=== PATIENT | female | born 1945 | race Caucasian/White ===

== ENCOUNTER 2017-02-16 08:49 | Day surgery (SDC) | payer MEDICARE, OTHER ==
[~2017-02-16 08:49] MED LIST: Lactated Ringers 1,000 ML IV SCH; Sodium Chloride 0.9% 10 ML Syringe FLUSH PRN
[2017-02-16] MEDS ORDERED: fentaNYL 100 MCG/2 ML SDV ONE (10:37)
[2017-02-16] MEDS ORDERED: Propofol 200 MG/20 ML SDV ONE ×2 (10:38)
[2017-02-16] MEDS ORDERED: Midazolam 1 MG/ML 2 ML SDV ONE ×2 (10:38)
--- NOTE | 2017-02-16 10:50 | PCM.HPR ---
H & P Addendum review - H & P Addendum Review Date of Original H & P: 02/10/17 Date Reviewed: 02/16/17 Time Reviewed: 10:35 Patient was Examined: No Changes
--- NOTE | 2017-02-16 11:12 | PCM.OPNOTE ---
- General Post-Op/Procedure Note Date of Surgery/Procedure: 02/16/17 Operative Procedure(s): Colonoscopy Findings: normal Pre Op Diagnosis: Hx Colon Polyps Post-Op Diagnosis: Same Anesthesia Technique: MAC Primary Surgeon: Mario Uriostegui Anesthesia Provider: Courtney Palomo Complications: None Condition: Good Free Text/Narrative:: Intake & Output 02/15/17 02/16/17 02/16/17 22:59 06:59 14:59 Intake Total 600 Balance 600
--- NOTE | 2017-02-16 13:51 | OR ---
Date of Procedure: 02/16/2017 PREOPERATIVE DIAGNOSIS: History of colon polyps. POSTOPERATIVE DIAGNOSIS: Normal colonoscopy. PROCEDURE: Colonoscopy. ANESTHESIA: IV sedation. PROCEDURE IN DETAIL: The patient was brought to the procedure room where she was placed on her left side and IV sedation administered. Digital rectal exam was performed which was normal. Colonoscope was inserted and advanced to the level of the cecum without difficulty. The ileocecal valve was identified. I was unable to identify an appendiceal orifice. The prep was good and surfaces were well visualized. Upon withdrawing the scope, the ascending, transverse, and descending colon were normal in appearance. Sigmoid colon and rectum were normal. Retroflexion was normal. Air was removed and the scope withdrawn. The patient tolerated the procedure well and returned to recovery in stable condition. Recommend routine colon screening again in 5 years. JUAN DAMIAN MD /[id number]
[2017-02-16 16:33] VITALS: BP 118/52
== END 2017-02-16 12:37 | disposition home or self-care (01) ==
LOC: LL.SDS 08:49
PROVIDERS: ATTEND Surgery
DX: Z12.11 Encounter for screening for malignant neoplasm of colon (principal); I10 Essential (primary) hypertension; Z86.010 Personal history of colon polyps; Z88.8 Allergy status to other drugs, medicaments and biological substances; Z80.0 Family history of malignant neoplasm of digestive organs; Z79.82 Long term (current) use of aspirin; Z79.899 Other long term (current) drug therapy; Z98.890 Other specified postprocedural states; Z87.891 Personal history of nicotine dependence
CPT/HCPCS: G0105; J2250; J2704; J7120; 00810-QZ

== ENCOUNTER 2021-01-25 20:01 | Observation (INO) | payer MEDICARE, OTHER ==
[2021-01-25] MEDS ORDERED: Diltiazem 25 MG/5 ML SDV IVPUSH ONE ×3 (20:09→20:44)
[2021-01-25] MEDS: Sodium Chloride 0.9% 10 ML Syringe FLUSH PRN ×2 (20:16→20:56)
[2021-01-25 20:38] LABS: PTT,PARTIAL THROMBOPLSTIN TIME 25.1 SEC (24.5-32.8)
--- NOTE | 2021-01-25 20:47 | EDM.PDOC ---
ED HPI GENERAL MEDICAL PROBLEM - General Chief Complaint: Chest Pain Stated Complaint: chest pain Time Seen by Provider: 01/25/21 20:01 Source of Information: Reports: Patient History Limitations: Reports: No Limitations - History of Present Illness INITIAL COMMENTS - FREE TEXT/NARRATIVE: Pt. presents to ER with complaints of acute onset of palpitations and chest pain. She states the symptoms started at around 7:30 this evening. She states that she is short of breath since the symptoms started. Pt. states that she has a history of irregular heart rate in the past, necessit ating treatment with medications in the emergency room. She is not sure what rhythm she was in. She states that she was not started on any oral medications at home, and denies ever being on a blood thinner. Pt. underwent an echo in September 2020. Showed EF of 65%-70% with mild concentric hypertrophy. RV mildly enlarged, indeterminate diastolic function, trace mitral regurgitation (no stenosis), unable to visualize aortic valve, moderate tricuspid regurgitation. Pt. is currently only on amlodipine 2.5mg once daily for hypertension. Pt. states that she was active throughout the day today, working in her garden with family, but denies any exertion. Onset: Today Onset Date: 01/25/21 Location: Reports: Chest, Generalized - Related Data Allergies Allergy/AdvReac Type Severity Reaction Status Date / Time fentanyl Allergy dizziness,n Verified 01/25/21 20:29 ausea hydrocodone [From [place]] Allergy nausea,vomting, Verified 01/25/21 20:29 dizziness nitrofurantoin Allergy Headache Verified 01/25/21 20:29 [From Macrobid] oxycodone Allergy Nausea Verified 01/25/21 20:29 Home Meds: Home Meds Cholecalciferol (Vitamin D3) [Vitamin D3] 1,000 unit PO DAILY 03/25/15 [History] Multivitamin [Multi-Vitamin Daily] 1 each PO DAILY 03/25/15 [History] [place]-3S/DHA/Epa/Fish Oil [Fish Oil Dr 1,000 mg Softgel] 1 each PO DAILY 03/25/15 [History] Aspirin [Children's Aspirin] 81 mg PO DAILY 02/15/17 [History] Calcium Carbonate/Vitamin D3 [Calcium 600 + Vit D 200] 1 each PO BID 02/15/17 [History] amLODIPine [Norvasc] 2.5 mg PO DAILY 02/15/17 [History] Pravastatin [Pravachol] 20 mg PO MO@0800 01/25/21 [History] Past Medical History HEENT History: Reports: Cataract Cardiovascular History: Reports: Afib, Arrhythmia, CAD Other Cardiovascular History: vasomotor flushing Respiratory History: Reports: None Gastrointestinal History: Reports: Other (See Below) Other Gastrointestinal History: Has gall stones. No actual gallbladder attacks Genitourinary History: Reports: UTI, Recurrent DIABETES PHYSICIAN History: Reports: Dysfunctional Uterine Bleeding, Fibroids Musculoskeletal History: Reports: Arthritis Neurological History: Reports: None Psychiatric History: Reports: None Endocrine/Metabolic History: Reports: Vitamin D Deficiency Hematologic History: Reports: None Immunologic History: Reports: None Oncologic (Cancer) History: Reports: None Dermatologic History: Reports: None Other Dermatologic History: Pilonidal cyst - Infectious Disease History Infectious Disease History: Reports: Chicken Pox, Measles, Mumps, Rubella, Shingles - Past Surgical History HEENT Surgical History: Reports: Cataract Surgery Other GI Surgeries/Procedures: Hx. of noncancerous abdominal tumor Female Surgical History: Reports: Hysterectomy, Salpingo-Oophorectomy - Past Imaging History Past Imaging History: Reports: DEXA Scan, Mammogram Social & Family History - Family History HEENT: Reports: Hearing Impairment, Macular Degeneration Cardiac: Reports: Bypass, CAD, Cardiomyopathy, Heart Failure, Hypertension, DC Respiratory: Reports: None GI: Reports: None : Reports: None OBGYN: Reports: Other (See Below) Other OBGYN Family History: Mother with hysterectomy for unknown reason Musculoskeletal: Reports: Osteoarthritis Neurological: Reports: CVA, TIA Psychiatric: Reports: None Endocrine/Metabolic: Reports: None Hematologic: Reports: None Immunologic: Reports: None Dermatologic: Reports: None Oncologic: Reports: Colon, Lung, Skin - Caffeine Use Caffeine Use: Reports: None Other Caffeine Use: Chocolate - Living Situation & Occupation Living situation: Reports: , with Family Occupation: Retired ED ROS GENERAL - Review of Systems Review Of Systems: See Below Constitutional: Reports: No Symptoms. Denies: Fever, Chills, Malaise, Weakness, Fatigue HEENT: Reports: No Symptoms Respiratory: Reports: No Symptoms Cardiovascular: Reports: Chest Pain, Palpitations Endocrine: Reports: No Symptoms GI/Abdominal: Reports: No Symptoms : Reports: No Symptoms Musculoskeletal: Reports: No Symptoms Skin: Reports: No Symptoms Neurological: Reports: No Symptoms Psychiatric: Reports: No Symptoms Hematologic/Lymphatic: Reports: No Symptoms Immunologic: Reports: No Symptoms ED EXAM, GENERAL - Physical Exam Exam: See Below Exam Limited By: No Limitations General Appearance: Alert, WD/WN, No Apparent Distress Head: Atraumatic, Normocephalic Neck: Normal Inspection, Supple, Non-Tender, Full Range of Motion Respiratory/Chest: No Respiratory Distress, Lungs Clear, Normal Breath Sounds, No Accessory Muscle Use, Chest Non-Tender Cardiovascular: No Edema, No JVD, Tachycardia, Irregularly Irregular GI/Abdominal: Normal Bowel Sounds, Soft, Non-Tender, No Organomegaly, No Distention, No Mass (Female) Exam: Deferred Rectal (Female) Exam: Deferred Back Exam: Normal Inspection, Full Range of Motion Extremities: Normal Inspection, Normal Range of Motion, Non-Tender, No Pedal Edema, Normal Capillary Refill Neurological: Alert, Oriented, CN II-XII Intact Psychiatric: Normal Affect, Normal Mood Skin Exam: Warm, Dry, Intact, Normal Color, No Rash Lymphatic: No Adenopathy #1 Interpretation Rhythm: A-Fib EKG Interpretation Comments: Initial EKG afib with RVR #2 Interpretation Rhythm: NSR Course - Orders/Labs/Meds Orders: Active Orders 24 hr Category Date Time Status Patient Status [ADT] Routine ADT 01/25/21 21:24 Active EKG Documentation Completion [RC] ASDIRECTED Care 01/25/21 20:10 Active Peripheral IV Care [RC] . DIRECTED Care 01/25/21 20:10 Active Echo Comp wo Cont [US] Stat Exams 01/25/21 21:16 Ordered Diltiazem 125 mg Med 01/25/21 21:15 Active Sodium Chloride 0.9% [Normal Saline] 100 ml IV TITRATE Sodium Chloride 0.9% [Saline Flush] Med 01/25/21 20:09 Active 10 ml FLUSH ASDIRECTED PRN Peripheral IV Insertion Adult [OM.PC] Routine Oth 01/25/21 20:10 Ordered Medication Orders Diltiazem HCl 125 mg/ Sodium (Chloride) 125 mls @ 5 mls/hr IV TITRATE CEZAR; Protocol Sodium Chloride (Sodium Chloride 0.9% 10 Ml Syringe) 10 ml FLUSH ASDIRECTED PRN PRN Reason: Keep Vein Open Last Admin: 01/25/21 20:56 Dose: 10 ml Documented by: Admin: 01/25/21 20:16 Dose: 10 ml Documented by: LEAH Labs: Laboratory Tests 01/25/21 01/25/21 01/25/21 Range/Units 20:20 20:20 20:20 WBC 7.5 (4.0-10.2) K/uL RBC 5.20 H (3.77-5.09) M/uL Hgb 16.0 H (11.7-15.5) g/dL Hct 46.8 H (34.0-46.0) % MCV 90.0 (84.0-98.0) fL MCH 30.8 (28.2-33.3) pg MCHC 34.2 (31.7-36.0) g/dL RDW 13.4 (11.2-14.1) % Plt Count 260 (150-350) K/uL Neut % (Auto) 68.6 (45.0-80.0) % Lymph % (Auto) 18.2 (10.0-50.0) % [place] % (Auto) 9.8 (2.0-14.0) % Eos % (Auto) 3.1 (0.0-5.0) % Baso % (Auto) 0.3 (0.0-2.0) % Neut # (Auto) 5.12 (1.40-7.00) K/uL Lymph # (Auto) 1.36 (0.50-3.50) K/uL [place] # (Auto) 0.73 (0.00-1.00) K/uL Eos # (Auto) 0.23 (0.00-0.50) K/uL Baso # (Auto) 0.02 (0.00-0.20) K/uL PT 10.1 (9.5-12.0) SEC INR 1.0 APTT 25.1 (24.5-32.8) SEC Sodium 145 (136-145) mmol/L Potassium 4.4 (3.5-5.1) mmol/L Chloride 108 H (98-107) mmol/L Carbon Dioxide 23.4 (21.0-32.0) mmol/L Anion Gap 18.0 H (7-15) meq/L BUN 19 H (7-18) mg/dL Creatinine 0.65 (0.51-1.17) mg/dL Est Cr Clr Drug Dosing TNP Estimated GFR (MDRD) > 60 mL/min Glucose 155 H (70-99) mg/dL Calcium 9.4 (8.5-10.1) mg/dL Phosphorus 4.2 (2.6-4.7) mg/dL Magnesium 2.1 (1.8-2.4) mg/dL Total Bilirubin 0.5 (0.2-1.0) mg/dL AST 35 (15-37) U/L ALT 42 (12-78) U/L Alkaline Phosphatase 108 (46-116) IU/L Troponin I High Sens 6 (<=51) ng/L C-Reactive Protein < 0.2 (<=0.9) mg/dL NT-Pro-B Natriuret Pep 73 (0-125) pg/mL Total Protein 7.4 (6.4-8.2) g/dL Albumin 3.9 (3.4-5.0) g/dL TSH, Ultra Sensitive 1.259 (0.358-3.740) mIU/mL Meds: Medications Generic Name Dose Route Start Last Admin Trade Name Freq PRN Reason Stop Dose Admin Diltiazem HCl 125 mg/ Sodium 125 mls @ 5 mls/hr 01/25/21 21:15 Chloride IV TITRATE CEZAR Protocol 5 MG/HR Sodium Chloride 10 ml 01/25/21 20:09 01/25/21 20:56 Sodium Chloride 0.9% 10 Ml Syringe FLUSH 10 ml ASDIRECTED PRN Administration Keep Vein Open Discontinued Medications Generic Name Dose Route Start Last Admin Trade Name Freq PRN Reason Stop Dose Admin Diltiazem HCl 25 mg 01/25/21 20:09 01/25/21 20:12 Diltiazem 25 Mg/5 Ml Sdv IVPUSH 01/25/21 20:10 25 mg ONETIME ONE Administration Diltiazem HCl 25 mg 01/25/21 20:42 01/25/21 21:41 Diltiazem 25 Mg/5 Ml Sdv IVPUSH 01/25/21 20:43 Not Given ONETIME ONE Diltiazem HCl 20 mg 01/25/21 20:44 01/25/21 20:49 Diltiazem 25 Mg/5 Ml Sdv IVPUSH 01/25/21 20:45 20 mg ONETIME ONE Administration Diltiazem HCl 60 mg 01/25/21 21:25 01/25/21 21:41 Diltiazem Ir 60 Mg Tab PO 01/25/21 21:26 60 mg ONETIME ONE Administration - Re-Assessments/Exams Free Text/Narrative Re-Assessment/Exam: IV access established. Pt. was in atrial fib at 150-180 on arrival to ER. Pt. was initially given diltiazem 25mg IV. Rate decreased somewhat, ranging from 120-160. Pt. was given 20mg diltiazem IV after approx. 15 min. Pt. did slow down and eventually converted to a sinus rhythm in the 80s. Pt. was started on diltiazem IR 60mg PO. Pt. reported that the palpitations and chest discomfort completely resolved. Departure - Departure Time of Disposition: 22:13 Disposition: Refer to Observation Clinical Impression: Atrial fibrillation with rapid ventricular response, Chest pain - Discharge Information - Problem List Review Problem List Initiated/Reviewed/Updated: Yes - My Orders Last 24 Hours: My Active Orders 01/25/21 20:09 Sodium Chloride 0.9% [Saline Flush] 10 ml FLUSH ASDIRECTED PRN 01/25/21 20:10 EKG Documentation Completion [RC] ASDIRECTED Peripheral IV Care [RC] . DIRECTED Peripheral IV Insertion Adult [OM.PC] Routine 01/25/21 21:15 Diltiazem 125 mg Sodium Chloride 0.9% [Normal Saline] 100 ml IV TITRATE 01/25/21 21:16 Echo Comp wo Cont [US] Stat 01/25/21 21:24 Patient Status [ADT] Routine - Assessment/Plan Admission H&P: Please use this note as an admission H&P Last 24 Hours: My Active Orders 01/25/21 20:09 Sodium Chloride 0.9% [Saline Flush] 10 ml FLUSH ASDIRECTED PRN 01/25/21 20:10 EKG Documentation Completion [RC] ASDIRECTED Peripheral IV Care [RC] . DIRECTED Peripheral IV Insertion Adult [OM.PC] Routine 01/25/21 21:15 Diltiazem 125 mg Sodium Chloride 0.9% [Normal Saline] 100 ml IV TITRATE 01/25/21 21:16 Echo Comp wo Cont [US] Stat 01/25/21 21:24 Patient Status [ADT] Routine Plan: Pt. admitted observation on telemetry. She is a code 1. Start diltiazem IR 60mg TID. Echocardiogram was ordered for tomorrow. Labs consisting of troponin, CBC, and CMP ordered for AM. Will repeat EKG as needed.
[2021-01-25 20:52] LABS: CHLORIDE,CL 108 mmol/L (98-107); SODIUM,NA 145 mmol/L (136-145)
[2021-01-25] MEDS ORDERED: Diltiazem 125 MG in Sodium Chloride 0.9% 100 ML IV SCH (21:15)
[2021-01-25] MEDS ORDERED: Diltiazem IR 60 MG Tab PO ONE (21:25)
[2021-01-26 07:57] LABS: CHLORIDE,CL 109 mmol/L (98-107); SODIUM,NA 145 mmol/L (136-145)
[2021-01-26] MEDS: Diltiazem IR 60 MG Tab PO SCH ×2 (07:58→12:42)
[2021-01-26 07:59] LABS: ANION GAP 15.8 meq/L (7-15)
[2021-01-26] MEDS ORDERED: Fish Oil/Omega-3 Fatty Acids 1 Gm Cap PO SCH (08:00)
[2021-01-26] MEDS ORDERED: Aspirin 81 MG Tab.Chew PO SCH (08:00)
[2021-01-26] MEDS ORDERED: amLODIPine 5 MG Tab PO SCH (08:00)
[2021-01-26] MEDS ORDERED: Multivitamin Tab PO SCH (08:00)
[2021-01-26] MEDS ORDERED: Cholecalciferol (Vitamin D3) 25 MCG Tab PO SCH (08:00)
[2021-01-26] MEDS ORDERED: Calcium Carbonate/Vitamin D3 1500 MG-400 Units Tab PO SCH (08:00)
[2021-01-26] MEDS: Sodium Chloride 0.9% 10 ML Syringe FLUSH PRN (08:04)
[2021-01-26 12:44] VITALS: BP 131/67; PULSE 67
--- NOTE | 2021-01-26 13:00 | PCM.DCSUM1 ---
Discharge Summary - Hospital Course Brief History: Patient admitted observation after episode of Afib with RVR Diagnosis: Stroke: No - Discharge Data Discharge Date: 01/26/21 Discharge Disposition: Home, Self-Care 01 Condition: Good - Referral to Home Health Primary Care Physician: SHAWN Bhatt - Discharge Diagnosis/Problem(s) (1) Atrial fibrillation with rapid ventricular response SNOMED Code(s): 227068579907957 ICD Code: I48.91 - UNSPECIFIED ATRIAL FIBRILLATION Status: Acute Priority: High Current Visit: Yes Problem Details: Patient presented to ER with palpitations and noted to have Afib with RVR. History of previous episodes. Not on any preventive medications. Converted after Cardizem. Will be started on low dose Cardizem at disharge. Close follow up with PCP advised. - Patient Summary/Data Hospital Course: Patient remained in sinus rhythm during observation stay. Vital signs/labs stable. Has no complaints, feels well today. Requests to go home. Received IV Cardizem in addition to PO dosing. Cardiac echo scheduled prior to discharge. To follow up with PCP for official echo results. To be started on Cardizem as preventative for additional episodes of RVR. Precautions reviewed with patient prior to discharge. Would like her to follow up with PCP on Monday or next Monday. Also cautioned her to observe BP trends/observe for any symptoms of hypotension from the added Cardizem. - Patient Instructions Diet: Regular Diet as Tolerated Activity: As Tolerated Driving: May Drive Today Showering/Bathing: May Shower Other/Special Instructions: Follow up with your primary provider regarding echo results and any adjustments that may be needed to medication. Follow up otherwise as needed for any problems/concerns. Recommend getting a BP machine to check your blood pressure at home. The new medicine you are getting also works for lowering blood pressure. You may need your previous blood pressure med discontinued or have other med changes and your blood pressure may get a little too low. Please follow up with your clinic later this week so they can see how your are doing. - Discharge Plan *PRESCRIPTION DRUG MONITORING PROGRAM REVIEWED*: Not Applicable *COPY OF PRESCRIPTION DRUG MONITORING REPORT IN PATIENT BRENT: Not Applicable Prescriptions/Med Rec: Diltiazem [Cardizem CD] 120 mg PO DAILY #30 cap.er Home Medications: Home Meds Cholecalciferol (Vitamin D3) [Vitamin D3] 1,000 unit PO DAILY 03/25/15 [History] Multivitamin [Multi-Vitamin Daily] 1 each PO DAILY 03/25/15 [History] [place]-3S/DHA/Epa/Fish Oil [Fish Oil Dr 1,000 mg Softgel] 1 each PO DAILY 03/25/15 [History] Aspirin [Children's Aspirin] 81 mg PO DAILY 02/15/17 [History] Calcium Carbonate/Vitamin D3 [Calcium 600 + Vit D 200] 1 each PO BID 02/15/17 [History] amLODIPine [Norvasc] 2.5 mg PO DAILY 02/15/17 [History] Pravastatin [Pravachol] 20 mg PO MO@0800 01/25/21 [History] Diltiazem [Cardizem CD] 120 mg PO DAILY #30 cap.er 01/26/21 [Rx] Forms: ED Department Discharge Referrals: Mirella Wong PA [Primary Care Provider] - - Discharge Summary/Plan Comment DC Time >30 min.: No Total # of Minutes for Discharge Time: 30 - General Info Date of Service: 01/26/21 Admission Dx/Problem (Free Text: Afib/RVR Subjective Update: Feels well/no complaints Numeric/FACES Score: 0 - Review of Systems General: Reports: No Symptoms HEENT: Reports: No Symptoms Pulmonary: Reports: No Symptoms Cardiovascular: Reports: No Symptoms Gastrointestinal: Reports: No Symptoms Genitourinary: Reports: No Symptoms Musculoskeletal: Reports: Other (no acute changes from baseline) Skin: Reports: No Symptoms Neurological: Reports: No Symptoms Psychiatric: Reports: No Symptoms - Patient Data Vitals - Most Recent: Last Vital Signs Temp 36.9 C 01/26/21 12:00 Pulse 67 01/26/21 12:00 Resp 15 01/26/21 12:00 BP 131/67 01/26/21 12:00 Pulse Ox 94 L 01/26/21 12:00 Weight - Most Recent: 68.266 kg Lab Results - Last 24 hrs: Laboratory Results - last 24 hr 01/25/21 01/25/21 01/25/21 Range/Units 20:20 20:20 20:20 WBC 7.5 (4.0-10.2) K/uL RBC 5.20 H (3.77-5.09) M/uL Hgb 16.0 H (11.7-15.5) g/dL Hct 46.8 H (34.0-46.0) % MCV 90.0 (84.0-98.0) fL MCH 30.8 (28.2-33.3) pg MCHC 34.2 (31.7-36.0) g/dL RDW 13.4 (11.2-14.1) % Plt Count 260 (150-350) K/uL Neut % (Auto) 68.6 (45.0-80.0) % Lymph % (Auto) 18.2 (10.0-50.0) % [place] % (Auto) 9.8 (2.0-14.0) % Eos % (Auto) 3.1 (0.0-5.0) % Baso % (Auto) 0.3 (0.0-2.0) % Neut # (Auto) 5.12 (1.40-7.00) K/uL Lymph # (Auto) 1.36 (0.50-3.50) K/uL [place] # (Auto) 0.73 (0.00-1.00) K/uL Eos # (Auto) 0.23 (0.00-0.50) K/uL Baso # (Auto) 0.02 (0.00-0.20) K/uL PT 10.1 (9.5-12.0) SEC INR 1.0 APTT 25.1 (24.5-32.8) SEC Sodium 145 (136-145) mmol/L Potassium 4.4 (3.5-5.1) mmol/L Chloride 108 H (98-107) mmol/L Carbon Dioxide 23.4 (21.0-32.0) mmol/L Anion Gap 18.0 H (7-15) meq/L BUN 19 H (7-18) mg/dL Creatinine 0.65 (0.51-1.17) mg/dL Est Cr Clr Drug Dosing TNP Estimated GFR (MDRD) > 60 mL/min Glucose 155 H (70-99) mg/dL Calcium 9.4 (8.5-10.1) mg/dL Phosphorus 4.2 (2.6-4.7) mg/dL Magnesium 2.1 (1.8-2.4) mg/dL Total Bilirubin 0.5 (0.2-1.0) mg/dL AST 35 (15-37) U/L ALT 42 (12-78) U/L Alkaline Phosphatase 108 (46-116) IU/L Troponin I High Sens 6 (<=51) ng/L C-Reactive Protein < 0.2 (<=0.9) mg/dL NT-Pro-B Natriuret Pep 73 (0-125) pg/mL Total Protein 7.4 (6.4-8.2) g/dL Albumin 3.9 (3.4-5.0) g/dL TSH, Ultra Sensitive 1.259 (0.358-3.740) mIU/mL 01/26/21 01/26/21 Range/Units 07:19 07:19 WBC 6.4 (4.0-10.2) K/uL RBC 4.79 (3.77-5.09) M/uL Hgb 14.5 D (11.7-15.5) g/dL Hct 43.9 (34.0-46.0) % MCV 91.6 (84.0-98.0) fL MCH 30.3 (28.2-33.3) pg MCHC 33.0 (31.7-36.0) g/dL RDW 13.5 (11.2-14.1) % Plt Count 223 (150-350) K/uL Neut % (Auto) 65.0 (45.0-80.0) % Lymph % (Auto) 20.6 (10.0-50.0) % [place] % (Auto) 10.6 (2.0-14.0) % Eos % (Auto) 3.5 (0.0-5.0) % Baso % (Auto) 0.3 (0.0-2.0) % Neut # (Auto) 4.13 (1.40-7.00) K/uL Lymph # (Auto) 1.31 (0.50-3.50) K/uL [place] # (Auto) 0.67 (0.00-1.00) K/uL Eos # (Auto) 0.22 (0.00-0.50) K/uL Baso # (Auto) 0.02 (0.00-0.20) K/uL PT (9.5-12.0) SEC INR APTT (24.5-32.8) SEC Sodium 145 (136-145) mmol/L Potassium 4.1 (3.5-5.1) mmol/L Chloride 109 H (98-107) mmol/L Carbon Dioxide 24.3 (21.0-32.0) mmol/L Anion Gap 15.8 H (7-15) meq/L BUN 20 H (7-18) mg/dL Creatinine 0.70 (0.51-1.17) mg/dL Est Cr Clr Drug Dosing 59.96 Estimated GFR (MDRD) > 60 mL/min Glucose 114 H (70-99) mg/dL Calcium 8.5 (8.5-10.1) mg/dL Phosphorus (2.6-4.7) mg/dL Magnesium (1.8-2.4) mg/dL Total Bilirubin 0.5 (0.2-1.0) mg/dL AST 25 (15-37) U/L ALT 46 (12-78) U/L Alkaline Phosphatase 83 (46-116) IU/L Troponin I High Sens 9 (<=51) ng/L C-Reactive Protein (<=0.9) mg/dL NT-Pro-B Natriuret Pep (0-125) pg/mL Total Protein 6.5 (6.4-8.2) g/dL Albumin 3.4 (3.4-5.0) g/dL TSH, Ultra Sensitive (0.358-3.740) mIU/mL Med Orders - Current: Current Medications Amlodipine Besylate (Amlodipine 5 Mg Tab) 2.5 mg PO DAILY [facility] Last Admin: 01/26/21 08:00 Dose: 2.5 mg Documented by: Aspirin (Aspirin 81 Mg Tab.Chew) 81 mg PO DAILY [facility] Last Admin: 01/26/21 07:57 Dose: 81 mg Documented by: Calcium Carbonate (Calcium Carbonate/Vitamin D3 1500 Mg-400 Units Tab) 1 tab PO BID [facility] Last Admin: 01/26/21 07:56 Dose: 1 tab Documented by: Cholecalciferol (Cholecalciferol (Vitamin D3) 25 Mcg Tab) 25 mcg PO DAILY [facility] Last Admin: 01/26/21 07:57 Dose: 25 mcg Documented by: Diltiazem HCl (Diltiazem Ir 60 Mg Tab) 60 mg PO TID [facility] Last Admin: 01/26/21 12:42 Dose: 60 mg Documented by: Fish Oil (Fish Oil/[place]-3 Fatty Acids 1 Gm Cap) 1 gm PO DAILY [facility] Last Admin: 01/26/21 07:56 Dose: 1 gm Documented by: Diltiazem HCl 125 mg/ Sodium (Chloride) 125 mls @ 5 mls/hr IV TITRATE CEZAR; Protocol Multivitamins/Minerals/Vitamin C (Multivitamin Tab) 1 tab PO DAILY CEZAR Last Admin: 01/26/21 07:57 Dose: 1 tab Documented by: Pravastatin Sodium (Pravastatin 20 Mg Tab) 20 mg PO MO@0800 CEZAR Sodium Chloride (Sodium Chloride 0.9% 10 Ml Syringe) 10 ml FLUSH ASDIRECTED PRN PRN Reason: Keep Vein Open Last Admin: 01/26/21 08:04 Dose: 10 ml Documented by: Discontinued Medications Diltiazem HCl (Diltiazem 25 Mg/5 Ml Sdv) 25 mg IVPUSH ONETIME ONE Stop: 01/25/21 20:10 Last Admin: 01/25/21 20:12 Dose: 25 mg Documented by: Diltiazem HCl (Diltiazem 25 Mg/5 Ml Sdv) 25 mg IVPUSH ONETIME ONE Stop: 01/25/21 20:43 Last Admin: 01/25/21 21:41 Dose: Not Given Documented by: Diltiazem HCl (Diltiazem 25 Mg/5 Ml Sdv) 20 mg IVPUSH ONETIME ONE Stop: 01/25/21 20:45 Last Admin: 01/25/21 20:49 Dose: 20 mg Documented by: Diltiazem HCl (Diltiazem Ir 60 Mg Tab) 60 mg PO ONETIME ONE Stop: 01/25/21 21:26 Last Admin: 01/25/21 21:41 Dose: 60 mg Documented by: - Exam General: Reports: Alert, Oriented, Cooperative, No Acute Distress HEENT: Reports: Pupils Equal, Pupils Reactive, EOMI, Mucous Membr. Moist/[place] Neck: Reports: Supple Lungs: Reports: Clear to Auscultation, Normal Respiratory Effort Cardiovascular: Reports: Regular Rate, Regular Rhythm GI/Abdominal Exam: Soft, Non-Tender, No Distention (Female) Exam: Deferred Rectal (Female) Exam: Deferred Back Exam: Denies: Muscle Spasm Extremities: Normal Capillary Refill Skin: Reports: Warm, Dry Neurological: Reports: No New Focal Deficit Psy/Mental Status: Reports: Alert, Normal Affect, Normal Mood
[2021-02-01] MEDS ORDERED: Pravastatin 20 MG Tab PO SCH (08:00)
== END 2021-01-26 14:00 | disposition home or self-care (01) ==
LOC: LL.ED 20:01 → LL.MS 21:30
PROVIDERS: ADMIT Physician Assistant; ATTEND Physician Assistant
DX: R07.9 Chest pain, unspecified (principal); I10 Essential (primary) hypertension; I48.91 Unspecified atrial fibrillation; I25.10 Atherosclerotic heart disease of native coronary artery without angina pectoris; Z98.890 Other specified postprocedural states; Z79.82 Long term (current) use of aspirin; Z79.899 Other long term (current) drug therapy; Z88.8 Allergy status to other drugs, medicaments and biological substances; Z88.5 Allergy status to narcotic agent
CPT/HCPCS: 36415; 80053; 83735; 83880; 84100; 84443; 84484; 85025; 85610; 85730; 86140; 93005; 93010; 93306; 96374; 96376; 99217; 99220; 99285; A9270; G0378; J3490

== ENCOUNTER 2021-04-02 21:20 | Emergency (ER) | payer MEDICARE, OTHER ==
[2021-04-02] MEDS ORDERED: Sodium Chloride 0.9% 10 ML Syringe FLUSH PRN (21:27)
[2021-04-02] MEDS ORDERED: Metoprolol Tartrate 5 MG/5 ML SDV IVPUSH ONE ×2 (21:28→22:41)
[2021-04-02] MEDS: Diltiazem 25 MG/5 ML SDV IVPUSH ONE (21:35)
[2021-04-02] MEDS: Sodium Chloride 0.9% 1,000 ML IV ONE (21:40)
[2021-04-02 21:55] LABS: ANION GAP 12.7 meq/L (7-15); CHLORIDE,CL 107 mmol/L (98-107); SODIUM,NA 143 mmol/L (136-145)
[2021-04-02] MEDS ORDERED: Diltiazem 25 MG/5 ML SDV IVPUSH ONE (22:01)
[2021-04-02] MEDS: Diltiazem IR 60 MG Tab PO ONE (22:18)
--- NOTE | 2021-04-02 23:20 | EDM.PDOC ---
ED HPI GENERAL MEDICAL PROBLEM - General Chief Complaint: Cardiovascular Problem Stated Complaint: papaltations Time Seen by Provider: 04/02/21 21:22 Source of Information: Reports: Patient - History of Present Illness INITIAL COMMENTS - FREE TEXT/NARRATIVE: Mily is a 75 y/o female who comes to the ER reporting chest palpitations that started about 7/:30 pm tonight. She has had this happen in the past and was started in Cardizem. Has seen cardiology and also recently started taking Coumadin. - Related Data Allergies Allergy/AdvReac Type Severity Reaction Status Date / Time fentanyl Allergy dizziness,n Verified 01/25/21 20:29 ausea hydrocodone [From [place]] Allergy nausea,vomting, Verified 01/25/21 20:29 dizziness nitrofurantoin Allergy Headache Verified 01/25/21 20:29 [From Macrobid] oxycodone Allergy Nausea Verified 01/25/21 20:29 Home Meds: Home Meds Cholecalciferol (Vitamin D3) [Vitamin D3] 1,000 unit PO DAILY 03/25/15 [History] Multivitamin [Multi-Vitamin Daily] 1 each PO DAILY 03/25/15 [History] [place]-3S/DHA/Epa/Fish Oil [Fish Oil Dr 1,000 mg Softgel] 1 each PO DAILY 03/25/15 [History] Aspirin [Children's Aspirin] 81 mg PO DAILY 02/15/17 [History] Calcium Carbonate/Vitamin D3 [Calcium 600 + Vit D 200] 1 each PO BID 02/15/17 [History] amLODIPine [Norvasc] 2.5 mg PO DAILY 02/15/17 [History] Pravastatin [Pravachol] 20 mg PO MO@0800 01/25/21 [History] dilTIAZem HCL [Cardizem Cd] 180 mg PO QAM #30 cap.er.24h 04/02/21 [Rx] Past Medical History HEENT History: Reports: Cataract Other HEENT History: wears glasses Cardiovascular History: Reports: Afib, Arrhythmia, CAD, High Cholesterol, Hypertension Other Cardiovascular History: vasomotor flushing Respiratory History: Reports: None Gastrointestinal History: Reports: Other (See Below) Other Gastrointestinal History: Has gall stones. No actual gallbladder attacks Genitourinary History: Reports: UTI, Recurrent EDI MANAGER History: Reports: Dysfunctional Uterine Bleeding, Fibroids Musculoskeletal History: Reports: Arthritis Neurological History: Reports: None Psychiatric History: Reports: None Endocrine/Metabolic History: Reports: Vitamin D Deficiency Hematologic History: Reports: None Immunologic History: Reports: None Oncologic (Cancer) History: Reports: None Dermatologic History: Reports: None Other Dermatologic History: Pilonidal cyst - Infectious Disease History Infectious Disease History: Reports: Chicken Pox, Measles, Mumps, Rubella, Shingles - Past Surgical History HEENT Surgical History: Reports: Cataract Surgery Cardiovascular Surgical History: Reports: None Respiratory Surgical History: Reports: None GI Surgical History: Reports: Colonoscopy, Other (See Below) Other GI Surgeries/Procedures: Hx. of noncancerous abdominal tumor Female Surgical History: Reports: Hysterectomy, Salpingo-Oophorectomy Endocrine Surgical History: Reports: None Neurological Surgical History: Reports: None Musculoskeletal Surgical History: Reports: None Oncologic Surgical History: Reports: None Dermatological Surgical History: Reports: None - Past Imaging History Past Imaging History: Reports: DEXA Scan, Mammogram Social & Family History - Family History HEENT: Reports: Hearing Impairment, Macular Degeneration Cardiac: Reports: Bypass, CAD, Cardiomyopathy, Heart Failure, Hypertension, [place] Respiratory: Reports: None GI: Reports: None : Reports: None OBGYN: Reports: Other (See Below) Other OBGYN Family History: Mother with hysterectomy for unknown reason Musculoskeletal: Reports: Osteoarthritis Neurological: Reports: CVA, TIA Psychiatric: Reports: None Endocrine/Metabolic: Reports: None Hematologic: Reports: None Immunologic: Reports: None Dermatologic: Reports: None Oncologic: Reports: Colon, Lung, Skin - Tobacco Use Tobacco Use Status *Q: Never Tobacco User Second Hand Smoke Exposure: No - Caffeine Use Caffeine Use: Reports: Coffee Other Caffeine Use: Chocolate - Recreational Drug Use Recreational Drug Use: No - Living Situation & Occupation Living situation: Reports: , with Family Occupation: Retired ED ROS GENERAL - Review of Systems Review Of Systems: See Below Constitutional: Reports: No Symptoms HEENT: Reports: No Symptoms Respiratory: Reports: No Symptoms Cardiovascular: Reports: Chest Pain, Palpitations Endocrine: Reports: No Symptoms GI/Abdominal: Reports: No Symptoms : Reports: No Symptoms Musculoskeletal: Reports: No Symptoms Skin: Reports: No Symptoms Neurological: Reports: No Symptoms Psychiatric: Reports: No Symptoms Hematologic/Lymphatic: Reports: No Symptoms Immunologic: Reports: No Symptoms ED EXAM, GENERAL - Physical Exam Exam: See Below General Appearance: Alert, WD/WN, No Apparent Distress (Elderly female) Ears: Normal External Exam, Normal Canal, Hearing Grossly Normal Nose: Normal Inspection, Normal Mucosa Throat/Mouth: Normal Inspection, Normal Voice Head: Atraumatic, Normocephalic Neck: Supple Respiratory/Chest: No Respiratory Distress, Lungs Clear, Chest Non-Tender Cardiovascular: Normal Peripheral Pulses, Regular Rate, Rhythm, No Murmur GI/Abdominal: Normal Bowel Sounds, Soft (Female) Exam: Deferred Rectal (Female) Exam: Deferred Back Exam: Normal Inspection Extremities: Normal Inspection, Normal Range of Motion, No Pedal Edema, Normal Capillary Refill Neurological: Alert, Oriented, CN II-XII Intact, No Motor/Sensory Deficits Psychiatric: Normal Affect Skin Exam: Warm, Dry, Intact, Normal Color #2 Interpretation EKG Date: 04/02/21 Time: 22:49 Rhythm: NSR Rate (Beats/Min): 79 [place]: Normal P-Wave: Present QRS: Normal ST-T: Normal QT: Normal Comparison: Change From Previous EKG EKG Interpretation Comments: Sinus Rhythm #1 Interpretation EKG Date: 04/02/21 Time: 21:15 Rhythm: A-Flutter Rate (Beats/Min): 137 EKG Interpretation Comments: Atrial Flutter with RVR Course - Vital Signs Text/Narrative:: 2119 Patient was seen by the [employer] CONSULTANT. EKG and Labs ordered. IV fluids started. Cardizem 20mg IVP ordered. 2200 Labs reviewed. No acute findings. 2220 Tachycardia persisting. Cardizem IR 60mg po given. 2244 Noted that rate had come down to the 80s and patient felt better now. 2320 Rate still in the 80s, pt resting now and no further complaints. Will send her home with an increased dose of Cardizem tonight and then have her resume all home meds and follow up with her PCP in the next week for a recheck. Written instructions were given and she left the ER in stable condition. Last Recorded V/S: Last Vital Signs Temp 36.1 C 04/02/21 22:21 Pulse 135 H 04/02/21 22:21 Resp 22 H 04/02/21 22:21 BP 154/92 H 04/02/21 22:21 Pulse Ox 95 04/02/21 22:21 - Orders/Labs/Meds Orders: Active Orders 24 hr Category Date Time Status EKG Documentation Completion [RC] ASDIRECTED Care 04/02/21 21:27 Active EKG Documentation Completion [RC] ASDIRECTED Care 04/02/21 22:48 Active Chest 1V Frontal [CR] Stat Exams 04/02/21 22:08 Taken Sodium Chloride 0.9% [Saline Flush] Med 04/02/21 21:27 Active 10 ml FLUSH ASDIRECTED PRN Saline Lock Insert [OM.PC] Stat Oth 04/02/21 21:26 Ordered EKG 12 Lead [EK] Stat Ther 04/02/21 22:47 Ordered Medication Orders Sodium Chloride (Sodium Chloride 0.9% 10 Ml Syringe) 10 ml FLUSH ASDIRECTED PRN PRN Reason: Keep Vein Open Labs: Laboratory Tests 04/02/21 04/02/21 04/02/21 Range/Units 21:15 21:15 21:15 WBC 7.1 (4.0-10.2) K/uL RBC 5.41 H (3.77-5.09) M/uL Hgb 16.5 H D (11.7-15.5) g/dL Hct 48.4 H (34.0-46.0) % MCV 89.5 (84.0-98.0) fL MCH 30.5 (28.2-33.3) pg MCHC 34.1 (31.7-36.0) g/dL RDW 13.2 (11.2-14.1) % Plt Count 217 (150-350) K/uL Neut % (Auto) 66.6 (45.0-80.0) % Lymph % (Auto) 21.4 (10.0-50.0) % [place] % (Auto) 8.7 (2.0-14.0) % Eos % (Auto) 3.0 (0.0-5.0) % Baso % (Auto) 0.3 (0.0-2.0) % Neut # (Auto) 4.73 (1.40-7.00) K/uL Lymph # (Auto) 1.52 (0.50-3.50) K/uL [place] # (Auto) 0.62 (0.00-1.00) K/uL Eos # (Auto) 0.21 (0.00-0.50) K/uL Baso # (Auto) 0.02 (0.00-0.20) K/uL PT 10.4 (9.6-11.3) SEC INR 1.0 Sodium 143 (136-145) mmol/L Potassium 4.3 (3.5-5.1) mmol/L Chloride 107 (98-107) mmol/L Carbon Dioxide 23.3 (21.0-32.0) mmol/L Anion Gap 12.7 (7-15) meq/L BUN 22 H (7-18) mg/dL Creatinine 0.68 (0.51-1.17) mg/dL Est Cr Clr Drug Dosing TNP Estimated GFR (MDRD) > 60 mL/min Glucose 186 H (70-99) mg/dL Calcium 9.0 (8.5-10.1) mg/dL Magnesium 2.3 (1.8-2.4) mg/dL Total Bilirubin 0.5 (0.2-1.0) mg/dL AST 38 H (15-37) U/L ALT 44 (12-78) U/L Alkaline Phosphatase 118 H (46-116) IU/L Troponin I High Sens 7 (<=51) ng/L Total Protein 7.7 (6.4-8.2) g/dL Albumin 3.9 (3.4-5.0) g/dL TSH, Ultra Sensitive 2.014 (0.358-3.740) mIU/mL Meds: Medications Generic Name Dose Route Start Last Admin Trade Name Freq PRN Reason Stop Dose Admin Sodium Chloride 10 ml 04/02/21 21:27 Sodium Chloride 0.9% 10 Ml Syringe FLUSH ASDIRECTED PRN Keep Vein Open Discontinued Medications Generic Name Dose Route Start Last Admin Trade Name Freq PRN Reason Stop Dose Admin Diltiazem HCl 20 mg 04/02/21 21:28 04/02/21 21:35 Diltiazem 25 Mg/5 Ml Sdv IVPUSH 04/02/21 21:29 20 mg ONETIME ONE Administration Diltiazem HCl 20 mg 04/02/21 22:01 Diltiazem 25 Mg/5 Ml Sdv IVPUSH 04/02/21 22:02 ONETIME ONE Diltiazem HCl 60 mg 04/02/21 22:01 04/02/21 22:18 Diltiazem Ir 60 Mg Tab PO 04/02/21 22:02 60 mg ONETIME ONE Administration Sodium Chloride 1,000 mls @ 999 mls/hr 04/02/21 21:27 04/02/21 21:40 Normal Saline IV 04/02/21 22:27 999 mls/hr .BOLUS ONE Administration Metoprolol Tartrate 5 mg 04/02/21 21:28 Metoprolol Tartrate 5 Mg/5 Ml Sdv IVPUSH 04/02/21 21:29 ONETIME ONE Metoprolol Tartrate 5 mg 04/02/21 22:41 Metoprolol Tartrate 5 Mg/5 Ml Sdv IVPUSH 04/02/21 22:42 ONETIME ONE - Radiology Interpretation Free Text/Narrative:: CXR negative Departure - Departure Time of Disposition: 23:24 Disposition: Home, Self-Care 01 Condition: Good Clinical Impression: Atrial fibrillation with rapid ventricular response Prescriptions: dilTIAZem HCL [Cardizem Cd] 180 mg PO QAM #30 cap.er.24h Instructions: Warfarin Information, Atrial Fibrillation, [id number] Forms: ED Department Discharge Additional Instructions: -Cardizem CD 180mg oral daily #10 ER Rx and then Rx written for you. -Resume all other meds -Stay well hydrated -Make an appt to follow up with your PCP in the next week -Return as needed to the ER Sepsis Event Note (ED) - Evaluation Sepsis Screening Result: No Definite Risk - Focused Exam Vital Signs: Vital Signs Temp Pulse Resp BP Pulse Ox 04/02/21 22:21 36.1 C 135 H 22 H 154/92 H 95 04/02/21 22:18 133 H 21 H 131/86 97 04/02/21 22:05 124 H 22 H 149/93 H 95 04/02/21 22:00 129 H 22 H 167/97 H 95 - Problem List & Annotations (1) Atrial fibrillation with rapid ventricular response SNOMED Code(s): 113451601853726 Code(s): I48.91 - UNSPECIFIED ATRIAL FIBRILLATION Status: Acute Priority: High Annotation/Comment:: Cardizem increased to 180mg qd. Came in and converted after Cardizem 20mg IVP and then IR 60mg po. Advised FU with PCP. (2) Anticoagulant long-term use SNOMED Code(s): 878016055 Code(s): Z79.01 - LONG-TERM (CURRENT) USE OF ANTICOAGULANTS Status: Acute Annotation/Comment:: INR-1.0, recently started in the last couple days. Will have pt continue and FU with PCP. - Problem List Review Problem List Initiated/Reviewed/Updated: Yes - My Orders Last 24 Hours: My Active Orders 04/02/21 21:26 Saline Lock Insert [OM.PC] Stat 04/02/21 21:27 EKG Documentation Completion [RC] ASDIRECTED Sodium Chloride 0.9% [Saline Flush] 10 ml FLUSH ASDIRECTED PRN 04/02/21 22:08 Chest 1V Frontal [CR] Stat 04/02/21 22:47 EKG 12 Lead [EK] Stat 04/02/21 22:48 EKG Documentation Completion [RC] ASDIRECTED - Assessment/Plan Last 24 Hours: My Active Orders 04/02/21 21:26 Saline Lock Insert [OM.PC] Stat 04/02/21 21:27 EKG Documentation Completion [RC] ASDIRECTED Sodium Chloride 0.9% [Saline Flush] 10 ml FLUSH ASDIRECTED PRN 04/02/21 22:08 Chest 1V Frontal [CR] Stat 04/02/21 22:47 EKG 12 Lead [EK] Stat 04/02/21 22:48 EKG Documentation Completion [RC] ASDIRECTED Plan: See above
[2021-04-03 00:31] VITALS: BP 147/71; PULSE 83
== END 2021-04-02 23:40 | disposition home or self-care (01) ==
LOC: LL.ED 21:20
DX: I48.91 Unspecified atrial fibrillation (principal); I25.10 Atherosclerotic heart disease of native coronary artery without angina pectoris; E78.00 Pure hypercholesterolemia, unspecified; I10 Essential (primary) hypertension; Z79.82 Long term (current) use of aspirin; Z79.899 Other long term (current) drug therapy; Z88.5 Allergy status to narcotic agent; Z88.1 Allergy status to other antibiotic agents; Z88.8 Allergy status to other drugs, medicaments and biological substances
CPT/HCPCS: 71045; 80053; 83735; 84443; 84484; 85025; 85610; 93005; 93010; 96374; 99284; 99285-25; A9270-GY; J3490; J7030

== ENCOUNTER 2021-04-12 18:55 | Emergency (ER) | payer MEDICARE, OTHER ==
[2021-04-12 20:08] LABS: ANION GAP 13.8 meq/L (7-15); CHLORIDE,CL 106 mmol/L (98-107); SODIUM,NA 142 mmol/L (136-145)
--- NOTE | 2021-04-12 20:36 | EDM.PDOC ---
ED HPI GENERAL MEDICAL PROBLEM - General Chief Complaint: Cardiovascular Problem Stated Complaint: elevated blood pressure Time Seen by Provider: 04/12/21 19:10 Source of Information: Reports: Patient, Family History Limitations: Reports: No Limitations - History of Present Illness INITIAL COMMENTS - FREE TEXT/NARRATIVE: Pt. presents to ER with complaints of hypertension. She states that she has been checking her BP and home today and it has been consistently in the 200/100 range on her home machine. Pt. recently had an increase in her diltiazem following an ER visit for atrial fibrillation with RVR on 04/02/2021 . She states that she was also previously on amlodipine but she recently stopped this. Pt. states that she has been having problems with lightheadedness for some time, worse since increasing the diltiazem. She states that she has not been experiencing any chest pain, shortness of breath, palpitations, cough, congestion, fever, chills or other recent illnes ses. Pt. has not been diaphoretic. She has been alert and oriented. Denies any headache. No reported neurological symptoms. Onset: Today Location: Reports: Generalized - Related Data Allergies Allergy/AdvReac Type Severity Reaction Status Date / Time fentanyl Allergy dizziness,n Verified 04/12/21 18:57 ausea hydrocodone [From [place]] Allergy nausea,vomting, Verified 04/12/21 18:57 dizziness nitrofurantoin Allergy Headache Verified 04/12/21 18:57 [From Macrobid] oxycodone Allergy Nausea Verified 04/12/21 18:57 Home Meds: Home Meds Cholecalciferol (Vitamin D3) [Vitamin D3] 1,000 unit PO DAILY 03/25/15 [History] Multivitamin [Multi-Vitamin Daily] 1 each PO DAILY 03/25/15 [History] [place]-3S/DHA/Epa/Fish Oil [Fish Oil Dr 1,000 mg Softgel] 1 each PO DAILY 03/25/15 [History] Aspirin [Children's Aspirin] 81 mg PO DAILY 02/15/17 [History] Calcium Carbonate/Vitamin D3 [Calcium 600 + Vit D 200] 1 each PO BID 02/15/17 [History] amLODIPine [Norvasc] 2.5 mg PO DAILY 02/15/17 [History] Pravastatin [Pravachol] 20 mg PO MO@0800 01/25/21 [History] dilTIAZem HCL [Cardizem Cd] 180 mg PO QAM #30 cap.er.24h 04/02/21 [Rx] Warfarin [Coumadin] 5 mg PO ASDIRECTED 04/12/21 [History] Past Medical History HEENT History: Reports: Cataract Other HEENT History: wears glasses Cardiovascular History: Reports: Afib, Arrhythmia, CAD, High Cholesterol, Hypertension Other Cardiovascular History: vasomotor flushing Respiratory History: Reports: None Gastrointestinal History: Reports: Other (See Below) Other Gastrointestinal History: Has gall stones. No actual gallbladder attacks Genitourinary History: Reports: UTI, Recurrent SALT MAKER History: Reports: Dysfunctional Uterine Bleeding, Fibroids Musculoskeletal History: Reports: Arthritis Neurological History: Reports: None Psychiatric History: Reports: None Endocrine/Metabolic History: Reports: Vitamin D Deficiency Hematologic History: Reports: None Immunologic History: Reports: None Oncologic (Cancer) History: Reports: None Dermatologic History: Reports: None Other Dermatologic History: Pilonidal cyst - Infectious Disease History Infectious Disease History: Reports: Chicken Pox, Measles, Mumps, Rubella, Shingles - Past Surgical History HEENT Surgical History: Reports: Cataract Surgery Cardiovascular Surgical History: Reports: None Respiratory Surgical History: Reports: None GI Surgical History: Reports: Colonoscopy, Other (See Below) Other GI Surgeries/Procedures: Hx. of noncancerous abdominal tumor Female Surgical History: Reports: Hysterectomy, Salpingo-Oophorectomy Endocrine Surgical History: Reports: None Neurological Surgical History: Reports: None Musculoskeletal Surgical History: Reports: None Oncologic Surgical History: Reports: None Dermatological Surgical History: Reports: None - Past Imaging History Past Imaging History: Reports: DEXA Scan, Mammogram Social & Family History - Family History HEENT: Reports: Hearing Impairment, Macular Degeneration Cardiac: Reports: Bypass, CAD, Cardiomyopathy, Heart Failure, Hypertension, [place] Respiratory: Reports: None GI: Reports: None : Reports: None OBGYN: Reports: Other (See Below) Other OBGYN Family History: Mother with hysterectomy for unknown reason Musculoskeletal: Reports: Osteoarthritis Neurological: Reports: CVA, TIA Psychiatric: Reports: None Endocrine/Metabolic: Reports: None Hematologic: Reports: None Immunologic: Reports: None Dermatologic: Reports: None Oncologic: Reports: Colon, Lung, Skin - Caffeine Use Caffeine Use: Reports: Coffee Other Caffeine Use: Chocolate - Living Situation & Occupation Living situation: Reports: , with Family Occupation: Retired ED ROS GENERAL - Review of Systems Review Of Systems: See Below Constitutional: Reports: No Symptoms. Denies: Fever, Chills, Malaise, Weakness, Fatigue, Diaphoresis HEENT: Reports: No Symptoms Respiratory: Reports: No Symptoms Cardiovascular: Reports: Blood Pressure Problem, Lightheadedness Endocrine: Reports: No Symptoms GI/Abdominal: Reports: No Symptoms : Reports: No Symptoms Musculoskeletal: Reports: No Symptoms Skin: Reports: No Symptoms Neurological: Reports: No Symptoms Psychiatric: Reports: No Symptoms Hematologic/Lymphatic: Reports: No Symptoms Immunologic: Reports: No Symptoms ED EXAM, GENERAL - Physical Exam Exam: See Below Exam Limited By: No Limitations General Appearance: Alert, WD/WN, No Apparent Distress Head: Atraumatic, Normocephalic Neck: Normal Inspection, Supple, Non-Tender, Full Range of Motion Respiratory/Chest: No Respiratory Distress, Lungs Clear, Normal Breath Sounds, No Accessory Muscle Use, Chest Non-Tender Cardiovascular: Normal Peripheral Pulses, Regular Rate, Rhythm, No Edema, No JVD Peripheral Pulses: 4+: Radial (L) GI/Abdominal: Soft, Non-Tender, No Distention, No Mass (Female) Exam: Deferred Rectal (Female) Exam: Deferred Back Exam: Normal Inspection, Full Range of Motion Extremities: Normal Inspection, Normal Range of Motion, Non-Tender, No Pedal Edema, Normal Capillary Refill Neurological: Alert, Oriented, CN II-XII Intact, Normal Cognition, Normal Reflexes, No Motor/Sensory Deficits Psychiatric: Normal Affect, Normal Mood Skin Exam: Warm, Dry, Intact, Normal Color, No Rash #1 Interpretation Rhythm: NSR Course - Vital Signs Last Recorded V/S: Last Vital Signs Temp 37.1 C 04/12/21 19:00 Pulse 63 04/12/21 19:11 Resp 18 04/12/21 19:11 BP 149/60 H 04/12/21 19:11 Pulse Ox 97 04/12/21 19:11 - Orders/Labs/Meds Labs: Laboratory Tests 04/12/21 04/12/21 04/12/21 Range/Units 19:40 19:40 19:40 WBC 6.2 (4.0-10.2) K/uL RBC 5.05 (3.77-5.09) M/uL Hgb 15.3 (11.7-15.5) g/dL Hct 45.1 (34.0-46.0) % MCV 89.3 (84.0-98.0) fL MCH 30.3 (28.2-33.3) pg MCHC 33.9 (31.7-36.0) g/dL RDW 13.2 (11.2-14.1) % Plt Count 200 (150-350) K/uL Neut % (Auto) 70.3 (45.0-80.0) % Lymph % (Auto) 20.1 (10.0-50.0) % [place] % (Auto) 6.7 (2.0-14.0) % Eos % (Auto) 2.6 (0.0-5.0) % Baso % (Auto) 0.3 (0.0-2.0) % Neut # (Auto) 4.38 (1.40-7.00) K/uL Lymph # (Auto) 1.25 (0.50-3.50) K/uL [place] # (Auto) 0.42 (0.00-1.00) K/uL Eos # (Auto) 0.16 (0.00-0.50) K/uL Baso # (Auto) 0.02 (0.00-0.20) K/uL PT 17.9 H (9.6-11.3) SEC INR 1.8 Sodium 142 (136-145) mmol/L Potassium 3.7 (3.5-5.1) mmol/L Chloride 106 (98-107) mmol/L Carbon Dioxide 22.2 (21.0-32.0) mmol/L Anion Gap 13.8 (7-15) meq/L BUN 17 (7-18) mg/dL Creatinine 0.73 (0.51-1.17) mg/dL Est Cr Clr Drug Dosing TNP Estimated GFR (MDRD) > 60 mL/min Glucose 180 H (70-99) mg/dL Calcium 8.4 L (8.5-10.1) mg/dL Phosphorus 4.2 (2.6-4.7) mg/dL Magnesium 2.2 (1.8-2.4) mg/dL Total Bilirubin 0.3 (0.2-1.0) mg/dL AST 15 (15-37) U/L ALT 36 (12-78) U/L Alkaline Phosphatase 109 (46-116) IU/L Troponin I High Sens 6 (<=51) ng/L Total Protein 7.2 (6.4-8.2) g/dL Albumin 3.5 (3.4-5.0) g/dL Departure - Departure Time of Disposition: 20:20 Disposition: Home, Self-Care 01 Clinical Impression: Hypertension, Lightheadedness Instructions: Hypertension, Adult Referrals: Mirella Wong PA [Primary Care Provider] - Forms: ED Department Discharge Additional Instructions: I will have you continue with your current medications for now, since you are following up with Mirella tomorrow. Return to ER if you have chest pain, shortness of breath, or racing heart/feel like passing out. The diltiazem that you were started on for atrial fib can cause you to feel lightheaded, particularly when changing positions, is it affects your heart rate and blood pressure. It may take some time for your body to get used to the medication. Make sure you take care when changing positions, and make sure you are drinking plenty of water. Sepsis Event Note (ED) - Evaluation Sepsis Screening Result: No Definite Risk - Focused Exam Vital Signs: Vital Signs Temp Pulse Resp BP Pulse Ox 04/12/21 19:11 63 18 149/60 H 97 04/12/21 19:00 37.1 C 72 18 200/75 H 95 - Problem List Review Problem List Initiated/Reviewed/Updated: Yes - Assessment/Plan Plan: Pt. was observed in ER. She was in a sinus rhythm in the 80s during her stay. Initial BP was elevated at 200/75. It was checked a short time later and it was 149/60. It was checked several times during her stay. Her blood pressure stay consistently in the 140s systolic over 60-70 diastolic, with systolic BP never exceeding >170 systolic. Labs were all within normal limits. EKG did not show any acute ischemic changes. Discussed home BP monitoring. She states that often her BP is within the normal range, and then she checks in again and it is elevated. Advised her to check her BP just once a day or even a couple of times a week, following the loader operator's instructions for placement of the cuff and machine and being consistent with placement. Often the BP reading will be falsely elevated if it is checked repeatedly in the same extremity. Discussed the possible etiology of her lightheadedness/pharmacology of diltiazem at length with the patient. There seems to have been an increase in frequency and severity of the lightheadedness since starting and now increasing the diltiazem. Pt. was advised that lightheadedness is a frequent side effect of this medication. She was advised to change positions slowing to decrease to likelihood of postural hypotension. She was reassured that these symptoms will likely resolve once she has been on the medication longer. She was also advised to make sure she is well hydrated. Pt. was advised to return to ER if she has any chest pain, shortness of breath, palpitations, racing heart, syncope, persistent lightheadedness/near syncope. She was advised to return to ER of call at any time if she has questions or concerns. No medication changes were made at this time, as she has follow-up appointment scheduled tomorrow with her PCP.
[2021-04-12 22:05] VITALS: BP 162/68; PULSE 70
== END 2021-04-12 20:45 | disposition home or self-care (01) ==
LOC: LL.ED 18:55
DX: R42 Dizziness and giddiness (principal); I10 Essential (primary) hypertension; I25.10 Atherosclerotic heart disease of native coronary artery without angina pectoris; E78.00 Pure hypercholesterolemia, unspecified; I48.91 Unspecified atrial fibrillation; Z88.8 Allergy status to other drugs, medicaments and biological substances; Z88.5 Allergy status to narcotic agent; Z79.82 Long term (current) use of aspirin; Z79.899 Other long term (current) drug therapy
CPT/HCPCS: 36415; 80053; 83735; 84100; 84484; 85025; 85610; 99284-25

== ENCOUNTER 2021-04-16 23:24 | Observation (INO) | payer MEDICARE, OTHER ==
[2021-04-16] MEDS ORDERED: Diltiazem 25 MG/5 ML SDV IVPUSH ONE ×2 (23:25→23:43)
[2021-04-16] MEDS: Sodium Chloride 0.9% 10 ML Syringe FLUSH PRN ×2 (23:32→23:50)
--- NOTE | 2021-04-16 23:50 | EDM.PDOC ---
ED HPI GENERAL MEDICAL PROBLEM - General Chief Complaint: General Stated Complaint: A fib Time Seen by Provider: 04/16/21 23:37 Source of Information: Reports: Patient History Limitations: Reports: No Limitations - History of Present Illness INITIAL COMMENTS - FREE TEXT/NARRATIVE: Pt. presents to ER with complaints of racing heart. She states that the symptoms started about an hour before coming to ER. Pt. has a history of atrial fib. She is on diltiazem CD 180mg once daily. She is anticoagulated with coumadin. Pt. states that she has some shortness of breath associated with the palpitations. She states that overall she has not felt well today. She denies any fever or chills. No sore throat or rhinorrhea. No nausea, vomiting, or diarrhea. She sees Mirella Wong NP at [facility] for primary care. Pt. was seen in ER on 04/02 with atrial fib with RVR in the 140-150 range. Pt. was treated with a bolus of IV diltiazem which controlled her rate. Her oral diltiazem was increased and she was discharged. Pt. was also seen in ER on 04/12 with complaints of hypertension. She was found to be normotensive at that time, was not experiencing any tachycardia or chest pain, and was observed in ER and subsequently discharged. Pt. currently on diltiazem CD 180mg daily. Coumadin is currently being managed by the coagulation clinic. Her med list states that she is on 5mg coumadin once daily, but she states that she is now taking 2.5mg every other day. Onset: Today Onset Date: 04/17/21 Location: Reports: Chest - Related Data Allergies Allergy/AdvReac Type Severity Reaction Status Date / Time fentanyl Allergy dizziness,n Verified 04/17/21 01:21 ausea hydrocodone [From [place]] Allergy nausea,vomting, Verified 04/17/21 01:21 dizziness nitrofurantoin Allergy Headache Verified 04/17/21 01:21 [From Macrobid] oxycodone Allergy Nausea Verified 04/17/21 01:21 Home Meds: Home Meds Cholecalciferol (Vitamin D3) [Vitamin D3] 1,000 unit PO DAILY 03/25/15 [History] Multivitamin [Multi-Vitamin Daily] 1 each PO DAILY 03/25/15 [History] [place]-3S/DHA/Epa/Fish Oil [Fish Oil Dr 1,000 mg Softgel] 1 each PO DAILY 03/25/15 [History] Aspirin [Children's Aspirin] 81 mg PO DAILY 02/15/17 [History] Calcium Carbonate/Vitamin D3 [Calcium 600 + Vit D 200] 1 each PO BID 02/15/17 [History] Pravastatin [Pravachol] 20 mg PO BEDTIME 01/25/21 [History] dilTIAZem HCL [Cardizem Cd] 180 mg PO QAM #30 cap.er.24h 04/02/21 [Rx] Warfarin [Coumadin] 5 mg PO DAILY 04/12/21 [History] Past Medical History HEENT History: Reports: Cataract Other HEENT History: wears glasses Cardiovascular History: Reports: Afib, Arrhythmia, CAD, High Cholesterol, Hypertension Other Cardiovascular History: vasomotor flushing Respiratory History: Reports: None Gastrointestinal History: Reports: Other (See Below) Other Gastrointestinal History: Has gall stones. No actual gallbladder attacks Genitourinary History: Reports: UTI, Recurrent INSTRUCTIONAL SERVICES SPECIALIST History: Reports: Dysfunctional Uterine Bleeding, Fibroids Musculoskeletal History: Reports: Arthritis Neurological History: Reports: None Psychiatric History: Reports: None Endocrine/Metabolic History: Reports: Vitamin D Deficiency Hematologic History: Reports: None Immunologic History: Reports: None Oncologic (Cancer) History: Reports: None Dermatologic History: Reports: None Other Dermatologic History: Pilonidal cyst - Infectious Disease History Infectious Disease History: Reports: Chicken Pox, Measles, Mumps, Rubella, Shingles - Past Surgical History HEENT Surgical History: Reports: Cataract Surgery Cardiovascular Surgical History: Reports: None Respiratory Surgical History: Reports: None GI Surgical History: Reports: Colonoscopy, Other (See Below) Other GI Surgeries/Procedures: Hx. of noncancerous abdominal tumor Female Surgical History: Reports: Hysterectomy, Salpingo-Oophorectomy Endocrine Surgical History: Reports: None Neurological Surgical History: Reports: None Musculoskeletal Surgical History: Reports: None Oncologic Surgical History: Reports: None Dermatological Surgical History: Reports: None - Past Imaging History Past Imaging History: Reports: DEXA Scan, Mammogram Social & Family History - Family History HEENT: Reports: Hearing Impairment, Macular Degeneration Cardiac: Reports: Bypass, CAD, Cardiomyopathy, Heart Failure, Hypertension, [place] Respiratory: Reports: None GI: Reports: None : Reports: None OBGYN: Reports: Other (See Below) Other OBGYN Family History: Mother with hysterectomy for unknown reason Musculoskeletal: Reports: Osteoarthritis Neurological: Reports: CVA, TIA Psychiatric: Reports: None Endocrine/Metabolic: Reports: None Hematologic: Reports: None Immunologic: Reports: None Dermatologic: Reports: None Oncologic: Reports: Colon, Lung, Skin - Tobacco Use Tobacco Use Status *Q: Never Tobacco User Second Hand Smoke Exposure: No - Caffeine Use Caffeine Use: Reports: None Other Caffeine Use: Chocolate - Recreational Drug Use Recreational Drug Use: No - Living Situation & Occupation Living situation: Reports: , with Family Occupation: Retired ED ROS GENERAL - Review of Systems Review Of Systems: See Below Constitutional: Reports: No Symptoms HEENT: Reports: No Symptoms Respiratory: Reports: No Symptoms Cardiovascular: Reports: Chest Pain, Lightheadedness, Palpitations Endocrine: Reports: No Symptoms GI/Abdominal: Reports: No Symptoms : Reports: No Symptoms Musculoskeletal: Reports: No Symptoms Skin: Reports: No Symptoms Neurological: Reports: No Symptoms Psychiatric: Reports: No Symptoms Hematologic/Lymphatic: Reports: No Symptoms Immunologic: Reports: No Symptoms ED EXAM, GENERAL - Physical Exam Exam: See Below Exam Limited By: No Limitations General Appearance: Alert, WD/WN, No Apparent Distress Eye Exam: Bilateral Eye: EOMI Head: Atraumatic, Normocephalic Neck: Normal Inspection, Supple, Non-Tender, Full Range of Motion Respiratory/Chest: No Respiratory Distress, Lungs Clear, Normal Breath Sounds, No Accessory Muscle Use Cardiovascular: Normal Peripheral Pulses, Tachycardia, Irregularly Irregular Peripheral Pulses: 4+: Radial (R) GI/Abdominal: Soft, Non-Tender, No Distention, No Mass (Female) Exam: Deferred Rectal (Female) Exam: Deferred Extremities: Normal Inspection, Normal Range of Motion, No Pedal Edema, Normal Capillary Refill Neurological: Alert, Oriented, CN II-XII Intact, Normal Cognition, Normal Reflexes, No Motor/Sensory Deficits Psychiatric: Normal Affect, Normal Mood #1 Interpretation Rhythm: A-Fib Course - Vital Signs Last Recorded V/S: Last Vital Signs Temp 35.8 C L 04/16/21 23:37 Pulse 82 04/17/21 01:08 Resp 20 04/17/21 00:30 BP 140/80 04/17/21 01:08 Pulse Ox 95 04/17/21 00:30 - Orders/Labs/Meds Orders: Active Orders 24 hr Category Date Time Status Patient Status [ADT] Routine ADT 04/17/21 00:31 Active Peripheral IV Care [RC] . DIRECTED Care 04/16/21 23:30 Active Chest 1V Frontal [CR] Stat Exams 04/16/21 23:32 Taken Sodium Chloride 0.9% [Saline Flush] Med 04/16/21 23:29 Active 10 ml FLUSH ASDIRECTED PRN Peripheral IV Insertion Adult [OM.PC] Routine Oth 04/16/21 23:29 Ordered EKG 12 Lead [EK] Stat Ther 04/16/21 23:29 Ordered Medication Orders Sodium Chloride (Sodium Chloride 0.9% 10 Ml Syringe) 10 ml FLUSH ASDIRECTED PRN PRN Reason: Keep Vein Open Last Admin: 04/16/21 23:50 Dose: 10 ml Documented by: Admin: 04/16/21 23:32 Dose: 10 ml Documented by: CASSY Labs: Laboratory Tests 04/16/21 04/16/21 04/16/21 Range/Units 23:25 23:25 23:25 WBC 7.6 (4.0-10.2) K/uL RBC 5.49 H (3.77-5.09) M/uL Hgb 16.9 H D (11.7-15.5) g/dL Hct 48.7 H (34.0-46.0) % MCV 88.7 (84.0-98.0) fL MCH 30.8 (28.2-33.3) pg MCHC 34.7 (31.7-36.0) g/dL RDW 13.4 (11.2-14.1) % Plt Count 230 (150-350) K/uL Neut % (Auto) 64.1 (45.0-80.0) % Lymph % (Auto) 23.7 (10.0-50.0) % [place] % (Auto) 9.5 (2.0-14.0) % Eos % (Auto) 2.4 (0.0-5.0) % Baso % (Auto) 0.3 (0.0-2.0) % Neut # (Auto) 4.89 (1.40-7.00) K/uL Lymph # (Auto) 1.80 (0.50-3.50) K/uL [place] # (Auto) 0.72 (0.00-1.00) K/uL Eos # (Auto) 0.18 (0.00-0.50) K/uL Baso # (Auto) 0.02 (0.00-0.20) K/uL PT 16.8 H (9.6-11.3) SEC INR 1.6 APTT 35.0 H (23.6-29.8) SEC Sodium 143 (136-145) mmol/L Potassium 3.8 (3.5-5.1) mmol/L Chloride 105 (98-107) mmol/L Carbon Dioxide 22.6 (21.0-32.0) mmol/L Anion Gap 15.4 H (7-15) meq/L BUN 27 H (7-18) mg/dL Creatinine 0.77 (0.51-1.17) mg/dL Est Cr Clr Drug Dosing 49.93 mL/min Estimated GFR (MDRD) > 60 mL/min Glucose 147 H (70-99) mg/dL Calcium 8.6 (8.5-10.1) mg/dL Phosphorus 4.0 (2.6-4.7) mg/dL Magnesium 2.5 H (1.8-2.4) mg/dL Total Bilirubin 0.5 (0.2-1.0) mg/dL AST 26 (15-37) U/L ALT 49 (12-78) U/L Alkaline Phosphatase 130 H (46-116) IU/L Troponin I High Sens 7 (<=51) ng/L NT-Pro-B Natriuret Pep 83 (0-125) pg/mL Total Protein 8.0 (6.4-8.2) g/dL Albumin 3.9 (3.4-5.0) g/dL TSH, Ultra Sensitive 3.586 (0.358-3.740) mIU/mL Meds: Medications Generic Name Dose Route Start Last Admin Trade Name Freq PRN Reason Stop Dose Admin Sodium Chloride 10 ml 04/16/21 23:29 04/16/21 23:50 Sodium Chloride 0.9% 10 Ml Syringe FLUSH 10 ml ASDIRECTED PRN Administration Keep Vein Open Discontinued Medications Generic Name Dose Route Start Last Admin Trade Name Freq PRN Reason Stop Dose Admin Diltiazem HCl 20 mg 04/16/21 23:25 04/16/21 23:31 Diltiazem 25 Mg/5 Ml Sdv IVPUSH 04/16/21 23:26 20 mg ONETIME ONE Administration Diltiazem HCl 20 mg 04/16/21 23:43 04/16/21 23:50 Diltiazem 25 Mg/5 Ml Sdv IVPUSH 04/16/21 23:44 20 mg ONETIME ONE Administration Diltiazem HCl 240 mg 04/17/21 00:50 04/17/21 01:08 Diltiazem 120 Mg Cap.Cd PO 04/17/21 00:51 240 mg ONETIME ONE Administration - Radiology Interpretation Free Text/Narrative:: No obvious infiltrate or significant failure pattern noted on chest x-ray. - Re-Assessments/Exams Free Text/Narrative Re-Assessment/Exam: IV access established. Pt. was given diltiazem 20mg IV for atrial fib with rate of 140-150. Pt. continued to be tachycardic with rate greater than 130. Pt. was given second dose of IV diltiazem 20mg IV. Rate eventually decreased into the 80s. Occasionally she her rate will increase into the low 100s. She was given cardiazem CD 240mg PO. Departure - Departure Time of Disposition: 01:00 Disposition: Refer to Observation Condition: Good Clinical Impression: Atrial fibrillation with RVR - Discharge Information Sepsis Event Note (ED) - Evaluation Sepsis Screening Result: No Definite Risk - Focused Exam Vital Signs: Vital Signs Temp Pulse Resp BP Pulse Ox 04/17/21 00:30 81 20 148/75 H 95 04/17/21 00:00 84 18 142/71 H 94 L 04/16/21 23:52 132 H 19 138/79 94 L 04/16/21 23:37 35.8 C L 140 H 14 176/92 H 94 L - Problem List Review Problem List Initiated/Reviewed/Updated: Yes - My Orders Last 24 Hours: My Active Orders 04/16/21 23:29 Sodium Chloride 0.9% [Saline Flush] 10 ml FLUSH ASDIRECTED PRN Peripheral IV Insertion Adult [OM.PC] Routine EKG 12 Lead [EK] Stat 04/16/21 23:30 Peripheral IV Care [RC] . DIRECTED 04/16/21 23:32 Chest 1V Frontal [CR] Stat 04/17/21 00:31 Patient Status [ADT] Routine - Assessment/Plan Last 24 Hours: My Active Orders 04/16/21 23:29 Sodium Chloride 0.9% [Saline Flush] 10 ml FLUSH ASDIRECTED PRN Peripheral IV Insertion Adult [OM.PC] Routine EKG 12 Lead [EK] Stat 04/16/21 23:30 Peripheral IV Care [RC] . DIRECTED 04/16/21 23:32 Chest 1V Frontal [CR] Stat 04/17/21 00:31 Patient Status [ADT] Routine Plan: Pt. will be admitted observation with tele for atrial fibrillation with RVR. She is a code 1. Saline lock IV. Vitals Q 4 hour. Up ad hortensia. Regular diet. Repeat troponin in AM. Anticipate discharge in AM, pending continued rate control. She is currently anticoagulated with coumadin, although INR subtheraputic at 1.6. Will increase coumadin to 5 mg daily with repeat INR on Monday.
[2021-04-17 00:14] LABS: ANION GAP 15.4 meq/L (7-15); CHLORIDE,CL 105 mmol/L (98-107); SODIUM,NA 143 mmol/L (136-145)
[2021-04-17] MEDS ORDERED: Diltiazem 120 MG Cap.CD PO ONE (00:50)
[2021-04-17] MEDS ORDERED: Fish Oil/Omega-3 Fatty Acids 1 Gm Cap PO SCH (08:00)
[2021-04-17] MEDS ORDERED: Calcium Carbonate/Vitamin D3 625 MG-125 Unit Tab PO SCH (08:00)
[2021-04-17] MEDS ORDERED: Warfarin 5 MG Tab PO SCH (08:00)
[2021-04-17] MEDS ORDERED: Cholecalciferol (Vitamin D3) 25 MCG Tab PO SCH (08:00)
[2021-04-17] MEDS ORDERED: Multivitamin Tab PO SCH (08:00)
[2021-04-17] MEDS ORDERED: Aspirin 81 MG Tab.Chew PO SCH (08:00)
[2021-04-17 08:01] VITALS: PULSE 61
--- NOTE | 2021-04-17 09:03 | PCM.DCSUM1 ---
Discharge Summary - Hospital Course Free Text/Narrative:: Pt. admitted early this AM on observation status with episode of afib with RVR. She was treated with IV diltiazem in ER. Pt. remained rate controlled throughout the night. Currently pt. denies any chest pain, palpitations, or shortness of breath. Repeat troponin was negative. She has been in atrial fib at 60-70 throughout the night. She is requesting discharge at this time. - Discharge Data Discharge Date: 04/17/21 Discharge Disposition: Home, Self-Care 01 Condition: Good - Referral to Home Health Primary Care Physician: SHAWN Bhatt - Discharge Diagnosis/Problem(s) (1) Atrial fibrillation with rapid ventricular response SNOMED Code(s): 418038649049474 ICD Code: I48.91 - UNSPECIFIED ATRIAL FIBRILLATION Status: Acute Priority: High Current Visit: Yes Problem Details: Cardizem increased to 180mg qd. Came in and converted after Cardizem 20mg IVP and then IR 60mg po. Advised FU with PCP. (2) Anticoagulant long-term use SNOMED Code(s): 802387167 ICD Code: Z79.01 - SNF (CURRENT) USE OF ANTICOAGULANTS Status: Acute Current Visit: No Problem Details: INR-1.0, recently started in the last couple days. Will have pt continue and FU with PCP. - Patient Instructions Diet: Heart Healthy Diet - Discharge Plan Prescriptions/Med Rec: Diltiazem [Cardizem CD] 240 mg PO DAILY #30 cap.cd Home Medications: Home Meds Cholecalciferol (Vitamin D3) [Vitamin D3] 1,000 unit PO DAILY 03/25/15 [History] Multivitamin [Multi-Vitamin Daily] 1 each PO DAILY 03/25/15 [History] [place]-3S/DHA/Epa/Fish Oil [Fish Oil Dr 1,000 mg Softgel] 1 each PO DAILY 03/25/15 [History] Aspirin [Children's Aspirin] 81 mg PO DAILY 02/15/17 [History] Calcium Carbonate/Vitamin D3 [Calcium 600 + Vit D 200] 1 each PO BID 02/15/17 [History] Pravastatin [Pravachol] 20 mg PO BEDTIME 01/25/21 [History] Warfarin [Coumadin] 5 mg PO DAILY 04/12/21 [History] Diltiazem [Cardizem CD] 240 mg PO DAILY #30 cap.cd 04/17/21 [Rx] Forms: ED Department Discharge Referrals: Mirella Wong PA [Primary Care Provider] - - Discharge Summary/Plan Comment DC Time >30 min.: No Total # of Minutes for Discharge Time: 25 Discharge Summary/Plan Comment: Pt. diltiazem CD was increased to 240mg PO daily. She was given 120mg capsules from hospital stock. Script was electronically sent to [facility]. Advised to follow-up in clinic next week. INR check tomorrow as she was subtheraputic this AM. Return to ER if chest pain, shortness of breath, or racing heart. - General Info Functional Status: Reports: Pain Controlled - Review of Systems General: Reports: No Symptoms HEENT: Reports: No Symptoms Pulmonary: Reports: No Symptoms Cardiovascular: Reports: No Symptoms Gastrointestinal: Reports: No Symptoms Genitourinary: Reports: No Symptoms Musculoskeletal: Reports: No Symptoms Skin: Reports: No Symptoms Neurological: Reports: No Symptoms Psychiatric: Reports: No Symptoms - Patient Data Vitals - Most Recent: Last Vital Signs Temp 36.6 C 04/17/21 07:59 Pulse 61 04/17/21 07:59 Resp 20 04/17/21 07:59 BP 129/65 04/17/21 07:59 Pulse Ox 95 04/17/21 07:59 Weight - Most Recent: 68.946 kg Lab Results - Last 24 hrs: Laboratory Results - last 24 hr 04/16/21 04/16/21 04/16/21 Range/Units 23:25 23:25 23:25 WBC 7.6 (4.0-10.2) K/uL RBC 5.49 H (3.77-5.09) M/uL Hgb 16.9 H D (11.7-15.5) g/dL Hct 48.7 H (34.0-46.0) % MCV 88.7 (84.0-98.0) fL MCH 30.8 (28.2-33.3) pg MCHC 34.7 (31.7-36.0) g/dL RDW 13.4 (11.2-14.1) % Plt Count 230 (150-350) K/uL Neut % (Auto) 64.1 (45.0-80.0) % Lymph % (Auto) 23.7 (10.0-50.0) % [place] % (Auto) 9.5 (2.0-14.0) % Eos % (Auto) 2.4 (0.0-5.0) % Baso % (Auto) 0.3 (0.0-2.0) % Neut # (Auto) 4.89 (1.40-7.00) K/uL Lymph # (Auto) 1.80 (0.50-3.50) K/uL [place] # (Auto) 0.72 (0.00-1.00) K/uL Eos # (Auto) 0.18 (0.00-0.50) K/uL Baso # (Auto) 0.02 (0.00-0.20) K/uL PT 16.8 H (9.6-11.3) SEC INR 1.6 APTT 35.0 H (23.6-29.8) SEC Sodium 143 (136-145) mmol/L Potassium 3.8 (3.5-5.1) mmol/L Chloride 105 (98-107) mmol/L Carbon Dioxide 22.6 (21.0-32.0) mmol/L Anion Gap 15.4 H (7-15) meq/L BUN 27 H (7-18) mg/dL Creatinine 0.77 (0.51-1.17) mg/dL Est Cr Clr Drug Dosing 49.93 mL/min Estimated GFR (MDRD) > 60 mL/min Glucose 147 H (70-99) mg/dL Calcium 8.6 (8.5-10.1) mg/dL Phosphorus 4.0 (2.6-4.7) mg/dL Magnesium 2.5 H (1.8-2.4) mg/dL Total Bilirubin 0.5 (0.2-1.0) mg/dL AST 26 (15-37) U/L ALT 49 (12-78) U/L Alkaline Phosphatase 130 H (46-116) IU/L Troponin I High Sens 7 (<=51) ng/L NT-Pro-B Natriuret Pep 83 (0-125) pg/mL Total Protein 8.0 (6.4-8.2) g/dL Albumin 3.9 (3.4-5.0) g/dL TSH, Ultra Sensitive 3.586 (0.358-3.740) mIU/mL 04/17/21 Range/Units 08:00 WBC (4.0-10.2) K/uL RBC (3.77-5.09) M/uL Hgb (11.7-15.5) g/dL Hct (34.0-46.0) % MCV (84.0-98.0) fL MCH (28.2-33.3) pg MCHC (31.7-36.0) g/dL RDW (11.2-14.1) % Plt Count (150-350) K/uL Neut % (Auto) (45.0-80.0) % Lymph % (Auto) (10.0-50.0) % [place] % (Auto) (2.0-14.0) % Eos % (Auto) (0.0-5.0) % Baso % (Auto) (0.0-2.0) % Neut # (Auto) (1.40-7.00) K/uL Lymph # (Auto) (0.50-3.50) K/uL [place] # (Auto) (0.00-1.00) K/uL Eos # (Auto) (0.00-0.50) K/uL Baso # (Auto) (0.00-0.20) K/uL PT (9.6-11.3) SEC INR APTT (23.6-29.8) SEC Sodium (136-145) mmol/L Potassium (3.5-5.1) mmol/L Chloride (98-107) mmol/L Carbon Dioxide (21.0-32.0) mmol/L Anion Gap (7-15) meq/L BUN (7-18) mg/dL Creatinine (0.51-1.17) mg/dL Est Cr Clr Drug Dosing mL/min Estimated GFR (MDRD) mL/min Glucose (70-99) mg/dL Calcium (8.5-10.1) mg/dL Phosphorus (2.6-4.7) mg/dL Magnesium (1.8-2.4) mg/dL Total Bilirubin (0.2-1.0) mg/dL AST (15-37) U/L ALT (12-78) U/L Alkaline Phosphatase (46-116) IU/L Troponin I High Sens 13 (<=51) ng/L NT-Pro-B Natriuret Pep (0-125) pg/mL Total Protein (6.4-8.2) g/dL Albumin (3.4-5.0) g/dL TSH, Ultra Sensitive (0.358-3.740) mIU/mL Med Orders - Current: Current Medications Aspirin (Aspirin 81 Mg Tab.Chew) 81 mg PO DAILY [facility] Last Admin: 04/17/21 07:54 Dose: 81 mg Documented by: Calcium Carbonate (Calcium Carbonate/Vitamin D3 625 Mg-125 Unit Tab) 1 tab PO BID [facility] Last Admin: 04/17/21 07:55 Dose: 1 tab Documented by: Cholecalciferol (Cholecalciferol (Vitamin D3) 25 Mcg Tab) 25 mcg PO DAILY [facility] Last Admin: 04/17/21 08:02 Dose: 25 mcg Documented by: Diltiazem HCl (Diltiazem 120 Mg Cap.Cd) 240 mg PO DAILY [facility] Fish Oil (Fish Oil/[place]-3 Fatty Acids 1 Gm Cap) 1 gm PO DAILY [facility] Last Admin: 04/17/21 07:55 Dose: 1 gm Documented by: Multivitamins/Minerals/Vitamin C (Multivitamin Tab) 1 tab PO DAILY [facility] Last Admin: 04/17/21 08:02 Dose: 1 tab Documented by: Pravastatin Sodium (Pravastatin 20 Mg Tab) 20 mg PO BEDTIME [facility] Sodium Chloride (Sodium Chloride 0.9% 10 Ml Syringe) 10 ml FLUSH ASDIRECTED PRN PRN Reason: Keep Vein Open Last Admin: 04/16/21 23:50 Dose: 10 ml Documented by: Warfarin Sodium (Warfarin 5 Mg Tab) 5 mg PO DAILY [facility] Discontinued Medications Diltiazem HCl (Diltiazem 25 Mg/5 Ml Sdv) 20 mg IVPUSH ONETIME ONE Stop: 04/16/21 23:26 Last Admin: 04/16/21 23:31 Dose: 20 mg Documented by: Diltiazem HCl (Diltiazem 25 Mg/5 Ml Sdv) 20 mg IVPUSH ONETIME ONE Stop: 04/16/21 23:44 Last Admin: 04/16/21 23:50 Dose: 20 mg Documented by: Diltiazem HCl (Diltiazem 120 Mg Cap.Cd) 240 mg PO ONETIME ONE Stop: 04/17/21 00:51 Last Admin: 04/17/21 01:08 Dose: 240 mg Documented by: - Exam General: Reports: Alert, Oriented Lungs: Reports: Clear to Auscultation, Normal Respiratory Effort Cardiovascular: Reports: Regular Rate, Irregular Rhythm Back Exam: Reports: Normal Inspection, Full Range of Motion Extremities: Normal Inspection, Normal Range of Motion, No Pedal Edema, Normal Capillary Refill Skin: Reports: Warm, Dry, Intact Neurological: Reports: No New Focal Deficit Psy/Mental Status: Reports: Alert, Normal Affect, Normal Mood
[2021-04-17 09:33] VITALS: BP 125/65
[2021-04-17] MEDS ORDERED: Diltiazem 120 MG Cap.CD PO SCH (10:00)
[2021-04-17] MEDS ORDERED: Pravastatin 20 MG Tab PO SCH (20:00)
== END 2021-04-17 09:50 | disposition home or self-care (01) ==
LOC: LL.ED 23:24 → LL.MS 04-17 00:40
PROVIDERS: ADMIT Hospitalist; ATTEND Hospitalist
DX: I48.91 Unspecified atrial fibrillation (principal); R06.02 Shortness of breath; I10 Essential (primary) hypertension; I25.10 Atherosclerotic heart disease of native coronary artery without angina pectoris; E78.00 Pure hypercholesterolemia, unspecified; E55.9 Vitamin D deficiency, unspecified; Z98.890 Other specified postprocedural states; Z88.5 Allergy status to narcotic agent; Z88.8 Allergy status to other drugs, medicaments and biological substances; Z79.01 Long term (current) use of anticoagulants; Z79.82 Long term (current) use of aspirin; Z79.899 Other long term (current) drug therapy
CPT/HCPCS: 36415; 71045; 80053; 83735; 83880; 84100; 84443; 84484; 85025; 85610; 85730; 93005; 96374; 99285-25; A9270-GY; J3490

== ENCOUNTER 2021-05-12 18:42 | Emergency (ER) | payer MEDICARE, OTHER ==
[2021-05-13 03:20] VITALS: BP 139/75; PULSE 81
== END 2021-05-12 20:25 | disposition home or self-care (01) ==
LOC: LL.ED 18:42
DX: I48.0 Paroxysmal atrial fibrillation (principal); I25.10 Atherosclerotic heart disease of native coronary artery without angina pectoris; E78.00 Pure hypercholesterolemia, unspecified; I10 Essential (primary) hypertension; Z88.8 Allergy status to other drugs, medicaments and biological substances; Z88.5 Allergy status to narcotic agent; Z88.1 Allergy status to other antibiotic agents; Z79.82 Long term (current) use of aspirin; Z79.01 Long term (current) use of anticoagulants; Z79.899 Other long term (current) drug therapy
CPT/HCPCS: 36416; 85610; 99284

== ENCOUNTER 2021-07-15 00:05 | Observation (INO) | payer MEDICARE, OTHER ==
[2021-07-15] MEDS ORDERED: Diltiazem 25 MG/5 ML SDV IVPUSH ONE ×2 (00:33→01:01)
[2021-07-15] MEDS: Sodium Chloride 0.9% 10 ML Syringe FLUSH PRN ×3 (00:41→01:57)
[2021-07-15 01:07] LABS: ANION GAP 12.1 meq/L (7-15); CHLORIDE,CL 106 mmol/L (98-107); SODIUM,NA 142 mmol/L (136-145)
[2021-07-15] MEDS ORDERED: Digoxin 500 MCG/2 ML Amp IVPUSH ONE (01:45)
[2021-07-15] MEDS ORDERED: Ondansetron 4 MG Tab.DIS PO PRN (02:07)
[2021-07-15] MEDS ORDERED: Polyethylene Glycol 3350 Powder 17 GM Packet PO PRN (02:07)
[2021-07-15] MEDS ORDERED: Acetaminophen 325 MG Tab PO PRN (02:07)
[2021-07-15] MEDS ORDERED: Digoxin 125 MCG Tab PO ONE (07:45)
[2021-07-15 07:49] VITALS: BP 129/71
[2021-07-15 07:50] VITALS: PULSE 57
[2021-07-15] MEDS ORDERED: Calcium Carbonate/Vitamin D3 625 MG-125 Unit Tab PO SCH (08:00)
[2021-07-15] MEDS ORDERED: Cholecalciferol (Vitamin D3) 25 MCG Tab PO SCH (08:00)
[2021-07-15] MEDS ORDERED: Diltiazem 180 MG Cap.CD PO SCH (08:00)
[2021-07-15] MEDS ORDERED: Apixaban 5 MG Tab PO SCH (08:00)
[2021-07-15] MEDS ORDERED: Digoxin 250 MCG Tab PO ONE (08:15)
== END 2021-07-15 09:39 | disposition home or self-care (01) ==
LOC: LL.ED 00:05 → LL.MS 01:45
PROVIDERS: ADMIT Hospitalist; ATTEND Hospitalist
DX: I48.0 Paroxysmal atrial fibrillation (principal); I25.10 Atherosclerotic heart disease of native coronary artery without angina pectoris; E78.00 Pure hypercholesterolemia, unspecified; I10 Essential (primary) hypertension; M13.89 Other specified arthritis, multiple sites; E55.9 Vitamin D deficiency, unspecified; R07.89 Other chest pain; E78.2 Mixed hyperlipidemia; M81.0 Age-related osteoporosis without current pathological fracture; Z66 Do not resuscitate; Z88.6 Allergy status to analgesic agent; Z88.5 Allergy status to narcotic agent; Z88.1 Allergy status to other antibiotic agents; Z79.01 Long term (current) use of anticoagulants; Z79.899 Other long term (current) drug therapy
CPT/HCPCS: 36415; 80053; 81001; 83735; 84443; 84484; 85025; 87086; 93005; 93010; 96374; 96375; 96376; 99236; 99285-25; A9270-GY; G0378; J1160; J3490

== ENCOUNTER 2021-08-16 23:57 | Emergency (ER) | payer MEDICARE, OTHER ==
[2021-08-17] MEDS ORDERED: Sodium Chloride 0.9% 10 ML Syringe FLUSH PRN (00:02)
[2021-08-17] MEDS ORDERED: Diltiazem 25 MG/5 ML SDV IVPUSH ONE (00:04)
[2021-08-17 00:28] LABS: ANION GAP 13.7 meq/L (7-15); CHLORIDE,CL 104 mmol/L (98-107); SODIUM,NA 141 mmol/L (136-145)
[2021-08-17 00:40] VITALS: BP 134/75; PULSE 84
[2021-08-17] MEDS ORDERED: Diltiazem IR 60 MG Tab PO ONE (00:53)
== END 2021-08-17 01:23 | disposition home or self-care (01) ==
LOC: LL.ED 23:57
DX: I48.91 Unspecified atrial fibrillation (principal); I25.10 Atherosclerotic heart disease of native coronary artery without angina pectoris; I10 Essential (primary) hypertension; E78.00 Pure hypercholesterolemia, unspecified; Z79.899 Other long term (current) drug therapy; Z88.8 Allergy status to other drugs, medicaments and biological substances; Z88.6 Allergy status to analgesic agent
CPT/HCPCS: 36415; 80053; 84484; 85025; 93005; 93010; 96374; 99284; 99285-25; A9270-GY; J3490

== ENCOUNTER 2021-09-05 00:25 | Inpatient (IN) | payer MEDICARE, OTHER ==
[2021-09-05] MEDS ORDERED: Diltiazem 25 MG/5 ML SDV IVPUSH ONE ×2 (00:42→01:07)
[2021-09-05] MEDS: Sodium Chloride 0.9% 10 ML Syringe FLUSH PRN ×2 (00:51→01:14)
[2021-09-05] MEDS ORDERED: Ondansetron 4 MG Tab.DIS PO PRN (01:57)
[2021-09-05] MEDS ORDERED: Acetaminophen 325 MG Tab PO PRN (01:57)
[2021-09-05] MEDS ORDERED: Polyethylene Glycol 3350 Powder 17 GM Packet PO PRN (01:57)
[2021-09-05] MEDS ORDERED: Diltiazem 125 MG in Sodium Chloride 0.9% 100 ML IV SCH (02:00)
[2021-09-05 02:34] LABS: ANION GAP 13.3 meq/L (7-15); CHLORIDE,CL 105 mmol/L (98-107); SODIUM,NA 141 mmol/L (136-145)
[2021-09-05] MEDS: Apixaban 5 MG Tab PO SCH ×2 (07:36→17:12)
[2021-09-05] MEDS ORDERED: Diltiazem 180 MG Cap.CD PO SCH ×2 (08:00→19:00)
[2021-09-05] MEDS ORDERED: Diltiazem IR 60 MG Tab PO ONE ×2 (19:47→19:54)
[2021-09-05] MEDS ORDERED: Diltiazem IR 60 MG Tab ONE (20:05)
[2021-09-05 21:44] VITALS: BP 143/73; PULSE 59
[2021-09-06] MEDS ORDERED: Diltiazem IR 60 MG Tab PO ONE ×2 (04:00→19:54)
== END 2021-09-05 20:20 | disposition home or self-care (01) | DRG 310 ==
LOC: LL.ED 00:25 → UNDOADMIN 01:40 → LL.MS 01:40 → UNDODISIN 19:00 → UNDODEPER 20:09
PROVIDERS: ADMIT Hospitalist; ATTEND Hospitalist
DX: I48.0 Paroxysmal atrial fibrillation (principal); H54.7 Unspecified visual loss; I25.10 Atherosclerotic heart disease of native coronary artery without angina pectoris; E78.00 Pure hypercholesterolemia, unspecified; I10 Essential (primary) hypertension; N93.8 Other specified abnormal uterine and vaginal bleeding; Z66 Do not resuscitate; K80.80 Other cholelithiasis without obstruction; D21.9 Benign neoplasm of connective and other soft tissue, unspecified; M19.90 Unspecified osteoarthritis, unspecified site; E55.9 Vitamin D deficiency, unspecified; Z98.49 Cataract extraction status, unspecified eye; Z97.3 Presence of spectacles and contact lenses; Z79.01 Long term (current) use of anticoagulants; Z88.1 Allergy status to other antibiotic agents; Z88.5 Allergy status to narcotic agent; Z88.8 Allergy status to other drugs, medicaments and biological substances; Z79.899 Other long term (current) drug therapy; Z87.440 Personal history of urinary (tract) infections
CPT/HCPCS: 36415; 80053; 83735; 93005; J3490 ×5; A9270-GY

== ENCOUNTER 2021-09-21 00:44 | Emergency (ER) | payer MEDICARE, OTHER ==
[2021-09-21] MEDS ORDERED: Diltiazem 25 MG/5 ML SDV IVPUSH ONE (00:46)
[2021-09-21] MEDS ORDERED: Sodium Chloride 0.9% 10 ML Syringe FLUSH PRN (00:46)
[2021-09-21 00:58] VITALS: BP 142/68; PULSE 129
[2021-09-21] MEDS ORDERED: Diltiazem IR 60 MG Tab PO ONE (01:23)
[2021-09-21 01:29] LABS: ANION GAP 11.5 meq/L (7-15); CHLORIDE,CL 107 mmol/L (98-107); SODIUM,NA 144 mmol/L (136-145)
[2021-09-21 01:32] LABS: ESTIMATED GFR > 60 mL/min
== END 2021-09-21 01:52 | disposition home or self-care (01) ==
LOC: LL.ED 00:44
DX: I48.0 Paroxysmal atrial fibrillation (principal); I25.10 Atherosclerotic heart disease of native coronary artery without angina pectoris; E78.00 Pure hypercholesterolemia, unspecified; I10 Essential (primary) hypertension; Z88.5 Allergy status to narcotic agent; Z88.1 Allergy status to other antibiotic agents; Z88.8 Allergy status to other drugs, medicaments and biological substances; Z79.01 Long term (current) use of anticoagulants
CPT/HCPCS: 36415; 71046; 80053; 81001; 83735; 84484; 85025; 93005; 93010; 99284; 99285; A9270

== ENCOUNTER 2022-03-24 08:44 | Day surgery (SDC) | payer MEDICARE, OTHER ==
[~2022-03-24 08:44] MED LIST changes: -Lactated Ringers 1,000 ML IV SCH; +Midazolam 1 MG/ML 2 ML SDV ONE; +Propofol 200 MG/20 ML SDV ONE; -Sodium Chloride 0.9% 10 ML Syringe FLUSH PRN
[2022-03-24] MEDS ORDERED: Lactated Ringers 1,000 ML IV SCH (08:45)
[2022-03-24] MEDS ORDERED: Sodium Chloride 0.9% 10 ML Syringe FLUSH PRN (08:45)
[2022-03-24 14:35] VITALS: BP 126/99; PULSE 77
== END 2022-03-24 11:15 | disposition home or self-care (01) ==
LOC: LL.SDS 08:44
PROVIDERS: ATTEND Surgery
DX: Z12.11 Encounter for screening for malignant neoplasm of colon (principal); I11.0 Hypertensive heart disease with heart failure; I50.32 Chronic diastolic (congestive) heart failure; E55.9 Vitamin D deficiency, unspecified; I25.10 Atherosclerotic heart disease of native coronary artery without angina pectoris; E78.00 Pure hypercholesterolemia, unspecified; I48.0 Paroxysmal atrial fibrillation; Z86.010 Personal history of colon polyps; Z88.5 Allergy status to narcotic agent; Z88.6 Allergy status to analgesic agent; Z88.1 Allergy status to other antibiotic agents; Z79.899 Other long term (current) drug therapy; Z98.890 Other specified postprocedural states; Z90.710 Acquired absence of both cervix and uterus
CPT/HCPCS: J2250; J2704; J7120

== ENCOUNTER 2023-02-17 08:10 | Emergency (ER) | payer MEDICARE, OTHER ==
[2023-02-17] MEDS ORDERED: Diltiazem 25 MG/5 ML SDV ONE (08:26)
[2023-02-17] MEDS ORDERED: Diltiazem 25 MG/5 ML SDV IVPUSH ONE ×3 (08:26→12:31)
[2023-02-17 08:31] LABS: BASOPHILS ABSOLUTE AUTO 0.03 K/uL (0.00-0.20); BASOPHILS PERCENT AUTO 0.3 % (0.0-2.0); EOSINOPHILS ABSOLUTE AUTO 0.07 K/uL (0.00-0.50); EOSINOPHILS PERCENT AUTO 0.8 % (0.0-5.0); HEMATOCRIT 49.5 % (34.0-46.0); HEMOGLOBIN 16.6 g/dL (11.7-15.5); LYMPHOCYTES ABSOLUTE AUTO 1.15 K/uL (0.50-3.50); LYMPHOCYTES PERCENT AUTO 13.4 % (10.0-50.0); MEAN CORPUSCULAR HEMOGLOBIN 30.7 pg (28.2-33.3); MEAN CORPUSCULAR HGB CONC 33.5 g/dL (31.7-36.0); MEAN CORPUSCULAR VOLUME 91.5 fL (84.0-98.0); MONOCYTES ABSOLUTE AUTO 0.64 K/uL (0.00-1.00); MONOCYTES PERCENT AUTO 7.5 % (2.0-14.0); PLATELET COUNT,PLT 238 K/uL (150-350); RED BLOOD CELL COUNT 5.41 M/uL (3.77-5.09); RED CELL DISTRIBUTION WIDTH 13.1 % (11.2-14.1); WHITE BLOOD CELL COUNT,WBC 8.6 K/uL (4.0-10.2)
[2023-02-17] MEDS: Sodium Chloride 0.9% 10 ML Syringe FLUSH PRN ×3 (08:31→12:51)
[2023-02-17 08:54] LABS: ALANINE AMINOTRANSFERASE,ALT 50 U/L (12-78); ALBUMIN 3.6 g/dL (3.4-5.0); ALKALINE PHOSPHATASE 100 IU/L (46-116); ANION GAP 12.6 meq/L (7-15); ASPARTATE AMNIOTRANSFERASE,AST 24 U/L (15-37); BILIRUBIN TOTAL 0.7 mg/dL (0.2-1.0); BLOOD UREA NITROGEN,BUN 22 mg/dL (7-18); CALCIUM 8.8 mg/dL (8.5-10.1); CARBON DIOXIDE,CO2 23.4 mmol/L (21.0-32.0); CHLORIDE,CL 103 mmol/L (98-107); CREATININE 0.87 mg/dL (0.51-1.17); GLUCOSE RANDOM 225 mg/dL (70-99); MAGNESIUM 1.8 mg/dL (1.8-2.4); PRO B-TYPE NATRIUR PEPT,BNPPRO 1948 pg/mL (0-125); PROTEIN TOTAL,TP 6.9 g/dL (6.4-8.2); SODIUM,NA 139 mmol/L (136-145)
[2023-02-17 08:55] LABS: ESTIMATED GFR 69 mL/min (>=60)
[2023-02-17] MEDS ORDERED: Diltiazem 180 MG Cap.CD PO ONE (09:10)
[2023-02-17] MEDS ORDERED: Diltiazem 125 MG in Sodium Chloride 0.9% 100 ML IV SCH (11:45)
[2023-02-17] MEDS ORDERED: Rivaroxaban 10 MG Tab PO STA (12:04)
[2023-02-17] MEDS ORDERED: Sodium Chloride 0.9% 1,000 ML IV SCH (12:45)
[2023-02-17 14:24] VITALS: BP 122/63; PULSE 84
== END 2023-02-17 13:40 ==
LOC: LL.ED 08:10
DX: I48.91 Unspecified atrial fibrillation (principal); I11.0 Hypertensive heart disease with heart failure; I50.30 Unspecified diastolic (congestive) heart failure; E11.9 Type 2 diabetes mellitus without complications; Z88.6 Allergy status to analgesic agent; Z88.5 Allergy status to narcotic agent; Z88.1 Allergy status to other antibiotic agents; Z79.899 Other long term (current) drug therapy
CPT/HCPCS: 36415; 71045; 80053; 83735; 83880; 84484; 85025; 85379; 93005; 96365; 96366; 96376; 99285-25; A9270-GY; J3490; J7030

== ENCOUNTER 2024-12-12 12:53 | Emergency (ER) | payer MEDICARE ==
[2024-12-12] MEDS: Sodium Chloride 0.9% 10 ML Syringe FLUSH PRN (13:10)
[2024-12-12] MEDS: Diltiazem 25 MG/5 ML SDV IVPUSH ONE ×2 (13:10→13:30)
[2024-12-12 13:14] LABS: BASOPHILS ABSOLUTE AUTO 0.02 K/uL (0.00-0.20); BASOPHILS PERCENT AUTO 0.3 % (0.0-2.0); EOSINOPHILS ABSOLUTE AUTO 0.08 K/uL (0.00-0.50); EOSINOPHILS PERCENT AUTO 1.2 % (0.0-5.0); IMMATURE GRAN ABSOLUTE AUTO 0.01 10^3/uL (0.00-0.04); IMMATURE GRAN PERCENT AUTO 0.1 % (0.0-0.4); LYMPHOCYTES ABSOLUTE AUTO 0.95 K/uL (0.50-3.50); LYMPHOCYTES PERCENT AUTO 13.8 % (10.0-50.0); MONOCYTES ABSOLUTE AUTO 0.69 K/uL (0.00-1.00); MONOCYTES PERCENT AUTO 10.0 % (2.0-14.0); NEUTROPHILS ABSOLUTE AUTO 5.14 K/uL (1.40-7.00); NEUTROPHILS PERCENT AUTO 74.6 % (45.0-80.0); PLATELET COUNT,PLT 207 K/uL (150-350); RED BLOOD CELL COUNT 5.15 M/uL (3.77-5.09); RED CELL DISTRIBUTION WIDTH 12.6 % (11.2-14.1); WHITE BLOOD CELL COUNT,WBC 6.9 K/uL (4.0-10.2)
[2024-12-12 13:39] LABS: ALANINE AMINOTRANSFERASE,ALT 66.0 U/L (12-78); ASPARTATE AMNIOTRANSFERASE,AST 42.0 U/L (15-37); BILIRUBIN TOTAL 0.5 mg/dL (0.2-1.0); BLOOD UREA NITROGEN,BUN 19.0 mg/dL (7-18); CARBON DIOXIDE,CO2 26.3 mmol/L (21.0-32.0); CHLORIDE,CL 108.0 mmol/L (98-107); CREATININE 0.91 mg/dL (0.51-1.17); EST CRCL DRUG DOSING (CG) 39.65 mL/min; ESTIMATED GFR 64.0 mL/min (>=60); GLUCOSE RANDOM 134.0 mg/dL (70-99); POTASSIUM,K 4.2 mmol/L (3.5-5.1); PROTEIN TOTAL,TP 7.2 g/dL (6.4-8.2); SODIUM,NA 143.0 mmol/L (136-145)
[2024-12-12 13:47] LABS: INR 1.1 (0.9-1.1); PTT,PARTIAL THROMBOPLSTIN TIME 27.9 SEC (23.8-34.4)
[2024-12-12 14:42] VITALS: PULSE 142
[2024-12-12 14:57] VITALS: BP 110/77
== END 2024-12-12 15:25 ==
LOC: LL.ED 12:53
DX: I48.91 Unspecified atrial fibrillation (principal); I11.0 Hypertensive heart disease with heart failure; I50.9 Heart failure, unspecified; E11.9 Type 2 diabetes mellitus without complications; Z88.8 Allergy status to other drugs, medicaments and biological substances; Z79.899 Other long term (current) drug therapy; Z79.84 Long term (current) use of oral hypoglycemic drugs; Z90.710 Acquired absence of both cervix and uterus
CPT/HCPCS: 36415; 71045; 80053; 83605; 83735; 84484; 85025; 85610; 85730; 93005; 96365; 96375; 96376; 99285-25; J1160; J3490